=== PATIENT | female | born 1955 | race Caucasian/White ===

== ENCOUNTER 2024-08-19 20:16 | Inpatient (IN) | payer OTHER, SELFPAY ==
[2024-08-19] VITALS (10 sets, daily range): BP systolic 140–195; BP diastolic 76–130; BMI 20.5; BMI 19.8
--- NOTE | 2024-08-19 14:21 | ED.GENMED ---
ED Provider Triage
<Sara Bryan PATIENT ACCESS COORDINATOR - Last Filed: 08/19/24 14:30>
-
Patient seen by provider in Triage?: Seen in Triage
Attestation: A medical screening examination has been initiated by a qualified medical provider. Based on the assessment performed at this time, it has been determined that an emergent medical condition may exist and the patient has been informed
that further medical evaluation and possible additional diagnostic testing may be needed.
HPI: 68 yo female with COPD presents for worsening SOB for past 10 days. Pt denies cough but at her side states she's been coughing. denies fever.
Pulse ox 74% RA on arrival, placed on O2 NC 4 L/min, pulse ox now 96%.
Finished Prednisone and antibiotic June. Started on anxiety medications 3 weeks ago and 'I've had all kinds of side effects between the prednisone.'
Switched from Lexapro to Zoloft 5 days ago due to 'shaking, trembling.'
GENERAL: Alert , in no apparent distress
EYE: No visual abnormalities.
NECK: Trachea midline
ENT: No visible abnormalities.
CARDIAC: HR 136
LUNGS: No acute respiratory distress.
NEUROLOGICAL: Alert and oriented
SKIN: Skin intact. No visible changes.
MUSCULOSKELETAL: Moving extremities normally
PSYCH: Normal and appropriate interaction.
This is a medical evaluation conducted in person to initiate diagnostic evaluation and provide initial therapeutics. Please see further documentation by the treating clinician.
History of Present Illness
<Sara Bryan PATIENT ACCESS COORDINATOR - Last Filed: 08/19/24 14:30>
General
Chief Complaint: Breathing Problem
Time Seen by Provider: 08/19/24 14:36
<Francisco Bartlett MD - Last Filed: 08/19/24 20:20>
General
Source: patient
Exam Limitations: none
Nursing documentation reviewed up to this point in time: agreed with
History of Present Illness
History of Present Illness:
68-year-old female with a past medical history of COPD, hypertension, anxiety who presents to the emergency department accompanied by her for evaluation of shortness of breath. Patient reports that she has had 'flareup' of her COPD really
since May but symptoms particularly severe over the past week. 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
weeks ago (early July). She was also prescribed a short course of antibiotics. She is already on Trelegy, rescue albuterol. She says that despite steroids, antibiotics her symptoms never really went away, only improved slightly. She says over
the past week symptoms once again worsening, today having trouble speaking in full sentences due to severe shortness of breath and sent to the emergency room. She has not had any fever. She says she has chronic rhinorrhea related to allergies but
no recent sore throat or other URI symptoms. She denies any chest pain. She denies any GI issues. She denies any other complaints. Only other recent pertinent history is that she has been seen by psychiatrist as apparently there was some
suspicion that her shortness of breath could have a component of anxiety�she was apparently started on SSRI and Klonopin as needed and she has not noticed any improvement.
Review of Systems
<Francisco Bartlett MD - Last Filed: 08/19/24 20:20>
Review of Systems
All Other Systems: ROS reviewed and negative except as documented in HPI and ROS
Constitutional: Denies fever or chills
EENT: Reports runny nose; Denies sore throat
Respiratory: Reports cough and trouble breathing
Cardiac: Denies chest pain or palpitations
ABD/GI: Denies abdominal pain, nausea or vomiting
: Denies flank pain
Musculoskeletal: Denies edema, neck pain or back pain
Neurological: Denies dizzy or headache
Phy Exam
<Francisco Bartlett MD - Last Filed: 08/19/24 20:20>
Physical Exam
Physical Exam:
General: Awake, alert, oriented x3; sitting upright in the bed, mild respiratory distress, speaking in short sentences
Head: Normocephalic, atraumatic
Eyes: Conjunctiva normal, sclera anicteric
Throat: Airway intact, handling secretions
Neck: Trachea midline, no JVD
Lungs: Patient sitting upright, speaking in short sentences, tachypnea with respiratory rate of 26, hypoxia to 85% requiring 4 L nasal cannula, diminished air movement with prolonged expiratory phase, diffuse wheezing
Heart: Tachycardia with regular rhythm, no murmurs, gallops, or rubs appreciated within limitations of significant tachycardia
Abd: Soft, non distended, nontender
Neuro: No gross deficits
Skin: no rash
Extremities: No edema in extremities, equal pulses in all extremities
Scores
<Francisco Bartlett MD - Last Filed: 08/19/24 20:20>
Heart Failure Risk
Heart Failure Risk Score: Not Applicable
Heart Score for Chest Pain Patients
STEMI patient?: Not applicable
Withdrawal Assessment of Alcohol
Withdrawal Assessment Completed?: Not applicable
Course
<Sara Bryan NP - Last Filed: 08/19/24 14:30>
Orders/Labs/Results
Orders:
Orders
08/19/24 Breakfast
Regular
At Your Request: Full Participation
08/19/24 14:30
Electrocardiogram (*1) Urgent
Reason for Study: Shortness of Breath
Other Reason for Exam: Tachycardia
EKG- Treatment ONCE
08/19/24 14:46
Ipratropium/Albuterol Sulfate [Duoneb] 3 ml .ROUTE .STK-MED ONE
MethylPREDNISolone PF [Solu-Medrol Pf] 40 mg .ROUTE .STK-MED ONE
08/19/24 14:50
CMP [Comprehensive Metabolic Panel] Urgent
Complete Blood Count/With Diff Urgent
NT-proBNP Urgent
Troponin I Urgent
08/19/24 15:00
COVID-19 Antigen Urgent
Source: Nasal Swab
D-Dimer Urgent
PTT Urgent
Prothrombin Time Urgent
Influenza A+B Rapid Molecular Urgent
[place] Source: Nasal Swab
Specimen Description:
08/19/24 15:07
MethylPREDNISolone PF [Solu-Medrol Pf] 125 mg .ROUTE .STK-MED ONE
MethylPREDNISolone PF [Solu-Medrol Pf] 125 mg IV NOW STA
08/19/24 15:12
Ipratropium/Albuterol Sulfate [Duoneb] 3 ml INH R NOW ONE
08/19/24 15:21
Ipratropium/Albuterol Sulfate [Duoneb] 3 ml INH R NOW STA
08/19/24 15:45
CT Chest Pe Study Urgent
Comment:
Reason For Exam: sob, hypoxia, +dimer
08/19/24 15:47
CR Chest - 2 Views Urgent
Comment:
Reason For Exam: sob
08/19/24 16:46
Ipratropium/Albuterol Sulfate [Duoneb] 3 ml INH R NOW STA
08/19/24 16:50
Venous Blood Gas Urgent
%Oxygen/Room Air: 85
08/19/24 19:13
Procalcitonin Urgent
PCT Algorithmm Indication: Respiratory
08/19/24 19:40
Admit/Transfer Patient As Directed
Co-Sign Provider:
Level of Care: Inpatient admission
Assign to:: Telemetry
Physician / Group: Ignacio
Diagnosis: RUL Mass, COPD
Reason for Telemetry: Arrhythmia
Date to Stop Telemetry: 08/22/24
Time to Stop Telemetry: 11:00
Reason for Hospitalization: RUL Mass, COPD
Expected length of stay greater than two midnights?: Yes
ELOS- Estimated Length of Stay in days: 3
I certify the patient meets the requirements for IP care: Yes
PRN Pain Medication Management As Directed
May give lesser potent ordered pain med per pt: Yes
preference::
Protocol:: Medication orders for pain may be administered in a
manner that supports deferring to patient preference
when the pt is:
- Requesting an ordered lesser potent pain medication.
Least to most potent pain medications are defined
as: acetaminophen < NSAID < tramadol < opioids
(morphine, oxycodone, hydromorphone).
- Requesting a lesser dose of the same medication IF
ORDERED.
- Requesting a less intrusive route of administration
if both routes are prescribed by the provider (PO <
IV).
08/19/24 19:41
Code Status As Directed
Resuscitation Status: Full Code
08/19/24 19:45
Clonazepam [Klonopin] 0.5 mg PO NOW STA
08/22/24 11:00
DC Protocol for Telemetry ONCE
Abnormal Lab Results
08/19/24 08/19/24 08/19/24
14:50 15:00 16:50
WBC 13.0 H 10^3/uL
(4.8-10.8)
Plt Count 504 H 10^3/uL
(130-400)
Abs Immat Gran (auto) 0.1 H 10^3/uL
(0-0.05)
Absolute Neuts (auto) 10.8 H 10^3/uL
(1.4-6.5)
Absolute Monos (auto) 0.9 H 10^3/uL
(0.1-0.6)
Neutrophils % 83.1 H %
(42.2-75.2)
Lymphocytes % 8.9 L %
(20.5-51.1)
D-Dimer 0.89 H ug/mlFEU
(0.00-0.50)
VBG pCO2 34 L mmHg
(35-48)
VBG pO2 210 H mmHg
(30-50)
VBG HCO3 21.1 L mmol/L
(22-27)
BUN 19 H mg/dl
(7-17)
Glucose 203 H mg/dl
(70-99)
Alkaline Phosphatase 127 H U/L
(38-126)
08/19/24 14:50
08/19/24 14:50
Vital Signs
Initial and Last Documented VS:
Initial Vital Signs
Temp Pulse Resp BP Pulse Ox
36.8 C 135 26 195/130 95
08/19/24 14:21 08/19/24 14:21 08/19/24 14:21 08/19/24 14:21 08/19/24 14:21
Last Documented Vital Signs
Temp Pulse Resp BP Pulse Ox
36.8 C 114 22 156/98 96
08/19/24 14:21 08/19/24 20:15 08/19/24 20:15 08/19/24 20:00 08/19/24 20:15
<Francisco Bartlett MD - Last Filed: 08/19/24 20:20>
Orders/Labs/Results
Orders:
Orders
08/19/24 Breakfast
Regular
At Your Request: Full Participation
08/19/24 14:30
Electrocardiogram (*1) Urgent
Reason for Study: Shortness of Breath
Other Reason for Exam: Tachycardia
EKG- Treatment ONCE
08/19/24 14:46
Ipratropium/Albuterol Sulfate [Duoneb] 3 ml .ROUTE .STK-MED ONE
MethylPREDNISolone PF [Solu-Medrol Pf] 40 mg .ROUTE .STK-MED ONE
08/19/24 14:50
CMP [Comprehensive Metabolic Panel] Urgent
Complete Blood Count/With Diff Urgent
NT-proBNP Urgent
Troponin I Urgent
08/19/24 15:00
COVID-19 Antigen Urgent
Source: Nasal Swab
D-Dimer Urgent
PTT Urgent
Prothrombin Time Urgent
Influenza A+B Rapid Molecular Urgent
[place] Source: Nasal Swab
Specimen Description:
08/19/24 15:07
MethylPREDNISolone PF [Solu-Medrol Pf] 125 mg .ROUTE .STK-MED ONE
MethylPREDNISolone PF [Solu-Medrol Pf] 125 mg IV NOW STA
08/19/24 15:12
Ipratropium/Albuterol Sulfate [Duoneb] 3 ml INH R NOW ONE
08/19/24 15:21
Ipratropium/Albuterol Sulfate [Duoneb] 3 ml INH R NOW STA
08/19/24 15:45
CT Chest Pe Study Urgent
Comment:
Reason For Exam: sob, hypoxia, +dimer
08/19/24 15:47
CR Chest - 2 Views Urgent
Comment:
Reason For Exam: sob
08/19/24 16:46
Ipratropium/Albuterol Sulfate [Duoneb] 3 ml INH R NOW STA
08/19/24 16:50
Venous Blood Gas Urgent
%Oxygen/Room Air: 85
08/19/24 19:13
Procalcitonin Urgent
PCT Algorithmm Indication: Respiratory
08/19/24 19:40
Admit/Transfer Patient As Directed
Co-Sign Provider:
Level of Care: Inpatient admission
Assign to:: Telemetry
Physician / Group: Ignacio
Diagnosis: RUL Mass, COPD
Reason for Telemetry: Arrhythmia
Date to Stop Telemetry: 08/22/24
Time to Stop Telemetry: 11:00
Reason for Hospitalization: RUL Mass, COPD
Expected length of stay greater than two midnights?: Yes
ELOS- Estimated Length of Stay in days: 3
I certify the patient meets the requirements for IP care: Yes
PRN Pain Medication Management As Directed
May give lesser potent ordered pain med per pt: Yes
preference::
Protocol:: Medication orders for pain may be administered in a
manner that supports deferring to patient preference
when the pt is:
- Requesting an ordered lesser potent pain medication.
Least to most potent pain medications are defined
as: acetaminophen < NSAID < tramadol < opioids
(morphine, oxycodone, hydromorphone).
- Requesting a lesser dose of the same medication IF
ORDERED.
- Requesting a less intrusive route of administration
if both routes are prescribed by the provider (PO <
IV).
08/19/24 19:41
Code Status As Directed
Resuscitation Status: Full Code
08/19/24 19:45
Clonazepam [Klonopin] 0.5 mg PO NOW STA
08/22/24 11:00
DC Protocol for Telemetry ONCE
Abnormal Lab Results
08/19/24 08/19/24 08/19/24
14:50 15:00 16:50
WBC 13.0 H 10^3/uL
(4.8-10.8)
Plt Count 504 H 10^3/uL
(130-400)
Abs Immat Gran (auto) 0.1 H 10^3/uL
(0-0.05)
Absolute Neuts (auto) 10.8 H 10^3/uL
(1.4-6.5)
Absolute Monos (auto) 0.9 H 10^3/uL
(0.1-0.6)
Neutrophils % 83.1 H %
(42.2-75.2)
Lymphocytes % 8.9 L %
(20.5-51.1)
D-Dimer 0.89 H ug/mlFEU
(0.00-0.50)
VBG pCO2 34 L mmHg
(35-48)
VBG pO2 210 H mmHg
(30-50)
VBG HCO3 21.1 L mmol/L
(22-27)
BUN 19 H mg/dl
(7-17)
Glucose 203 H mg/dl
(70-99)
Alkaline Phosphatase 127 H U/L
(38-126)
08/19/24 14:50
08/19/24 14:50
Vital Signs
Initial and Last Documented VS:
Initial Vital Signs
Temp Pulse Resp BP Pulse Ox
36.8 C 135 26 195/130 95
08/19/24 14:21 08/19/24 14:21 08/19/24 14:21 08/19/24 14:21 08/19/24 14:21
Last Documented Vital Signs
Temp Pulse Resp BP Pulse Ox
36.8 C 114 22 156/98 96
08/19/24 14:21 08/19/24 20:15 08/19/24 20:15 08/19/24 20:00 08/19/24 20:15
<Francisco Bartlett MD - Last Filed: 08/19/24 20:20>
MDM/Problems Addressed
Differential Diagnosis Includes:
COPD exacerbation, pneumonia, pneumothorax, PE, CHF
MDM/Problems Addressed:
68-year-old female presents to the ER for evaluation of shortness of breath�has had increased shortness of breath and cough since May, was initially treated with steroids and antibiotics with only slight improvement but not true resolution of her
symptoms. Over the past week symptoms worsening once again to the point of mild distress today. Markedly hypertensive, tachycardic, tachypneic, hypoxic on arrival but afebrile. Exam as above. EKG shows sinus tachycardia. Will place an IV send
labs including a CBC and a CMP, swab for COVID and flu. Certainly her presentation today seems consistent with COPD exacerbation but with her history of prolonged shortness of breath that did not resolve with steroids and antibiotics over the past
few months I do think evaluation for PE with D-dimer, troponin/BNP, coags is reasonable. Check chest x-ray. Will treat with DuoNeb and IV steroid. Will monitor closely reassess after the above.
Labs reviewed: CBC shows leukocytosis to 13 of unclear clinical significance in the setting of recent steroids. CMP hyperglycemia no other clinically significant abnormalities. BNP and troponin unremarkable. COVID and flu negative. D-dimer was
positive. Chest x-ray question right upper lobe pneumonia versus mass versus lobar infarct�with positive D-dimer and abnormal chest x-ray follow-up with CTA chest. Clinical reassessment wheezing greatly improved after DuoNeb treatments, wean down
oxygen.
CT of the chest shows no PE but near collapse of the right upper lobe secondary to what appears to be a right upper lobe mass suspicious for malignancy. Numerous scattered nodules within the left lower lobe which could be metastatic also enlarged
subcarinal lymph node; differential would also include cavitary pneumonia. Will send a procalcitonin but concern for malignancy. Suspect her acute symptoms are related to COPD exacerbation. I spoke to patient and family at length about findings
on imaging and implications. Will admit to the hospital for further treatment of COPD exacerbation and further evaluation of right upper lung findings on CT. Case discussed with hospitalist.
Chronic conditions affecting care:
COPD
Acute Exacerbation and/or Progression of Chronic Illness:
Acutely hypertensive likely related to respiratory symptoms�stabilize respiratory status and reassess.
Acute Exacerbation and/or Progression of Chronic Illness: HTN
<Francisco Bartlett MD - Last Filed: 08/19/24 20:20>
*Radiology
Radiology exam reviewed: radiology read reviewed
*Pulse Oximetry
Patient hypoxic: yes
*EKG
Interpreted by ED Provider?: Yes
Heart Rate: 131
Rate: tachycardiac
Rhythm: sinus and sinus tachycardia
[place]: normal axis
Interval: normal interval
QRS Pattern: normal QRS
Ischemia: non-specific ST changes
*Critical Care Note
Total Time (30-74mins, 75-104mins- exclusive of procedures): 34
comment:
Critical care statement: A total of 34 minutes of critical care time was provided for this patient. This includes management of unstable vital signs, evaluation of the patient at bedside, frequent reassessment, discussion with
consultants/hospitalist, and review of pertinent medical records. This time was separate from time utilized to perform any aforementioned documented procedures
Data Reviewed
Source: patient and spouse
<Francisco Bartlett MD - Last Filed: 08/19/24 20:20>
Patient Management
Discussion with other providers: Hospitalist (Case discussed with hospitalist)
Escalation/DeEscalation of care consider admission/obs:
Admission indicated
ED Attending Note
<Sara Bryan NP - Last Filed: 08/19/24 14:30>
-
Portions of this chart may have been created with voice recognition software.� Occasional wrong word or��sound alike� substitutions may have occurred due to the inherent limitations of voice recognition software.
Discharge Plan
Departure
Patient Disposition: Admit
Date of Disposition: 08/19/24
Time of Disposition: 19:09
Admit to doctor: Ignacio
Presentation/result/management discussed w/ accepting MD/DO: Hospitalist
Discharge Problem:
COPD with exacerbation, Mass of right lung
Interventions
Interventions:
*Risk Screen - Suicide Last Done: 08/19/24 14:21
*General Assessment Last Done: 08/19/24 15:15
*Neglect/Abuse Screening Last Done: 08/19/24 14:21
ED- Fall Risk Assessment Last Done: 08/19/24 15:15
*ED COVID-19 Vaccine History Last Done: 08/19/24 14:28
ED- Cardiac Assessment Last Done: 08/19/24 15:16
ED- Pulmonary Assessment Last Done: 08/19/24 15:16
[2024-08-19] MEDS: SOLU-MEDROL PF 125 MG IV (15:08)
[2024-08-19 15:10] LABS: % Basophils 0.3 % (0-2); % Eosinophils 0.4 % (0-6); % Immature Granulocytes 0.4 % (0-0.5); % Lymphocytes 8.9 % (20.5-51.1); % Monocytes 6.9 % (1.7-9.3); % Neutrophils 83.1 % (42.2-75.2); Absolute Eosinophils 0.1 10^3/uL (0-0.7); Absolute Immature Granulocytes 0.1 10^3/uL (0-0.05); Absolute Lymphocytes 1.2 10^3/uL (1.2-3.4); Absolute Monocytes 0.9 10^3/uL (0.1-0.6); Absolute Neutrophils 10.8 10^3/uL (1.4-6.5); Hematocrit 40.8 % (37.0-47.0); Hemoglobin 13.6 g/dL (12.0-16.0); Mean Corp Hgb Conc. 33.3 g/dL (33.0-37.0); Mean Corpuscular Hgb 28.2 pg (27.0-31.0); Mean Corpuscular Volume 84.5 fL (81.0-99.0); Mean Platelet Volume 9.7 fL (7.4-10.4); Nucleated Red Blood Cells % 0 %; Platelet Count 504 10^3/uL (130-400); Red Blood Cell Count 4.83 10^6/uL (4.20-5.40); Red Cell Dist. Width 13.7 % (11.5-14.5)
[2024-08-19] MEDS: DUONEB 3 ML INH ×4 (15:12→21:20)
[2024-08-19 15:25] LABS: INR 1.03; PT 13.3 Sec (11.4-14.6)
[2024-08-19 15:26] LABS: APTT 33.5 Sec (23.4-35.0)
[2024-08-19 15:28] LABS: ALT (SGPT) 20 U/L (0-35); AST (SGOT) 22 U/L (14-36); Albumin 4.9 g/dl (3.5-5.0); Alkaline Phosphatase 127 U/L (38-126); Blood Urea Nitrogen 19 mg/dl (7-17); Carbon Dioxide 25 mmol/L (22-30); Chloride 99 mmol/L (98-107); Estimated Creatinine Clearance 64 ml/min; Glucose 203 mg/dl (70-99); Potassium 3.8 mmol/L (3.5-5.1); Sodium 141 mmol/L (135-145); Total Bilirubin 0.4 mg/dl (0.2-1.3); eGFR > 60.00
[2024-08-19 15:29] LABS: D-Dimer 0.89 ug/mlFEU (0.00-0.50)
[2024-08-19 15:39] LABS: NT-proBNP 200 pg/ml; Troponin I < 0.012 ng/ml
[2024-08-19 15:39] LABS: COVID-19 Antigen Negative (Negative)
[2024-08-19 17:11] LABS: Venous Blood Gas B.E. -3.1 mmol/L (-4 to +4); Venous Blood Gas HCO3 21.1 mmol/L (22-27); Venous Blood Gas O2 Sat % 99.8 %; Venous Blood Gas pCO2 34 mmHg (35-48); Venous Blood Gas pO2 210 mmHg (30-50)
--- NOTE | 2024-08-19 19:46 | HPS.HSE ---
Family Physician
-
Family Physician: * NONE
Chief Complaint
-
SOB
History of Present Illness
Patient is a 68y F with PMH significant for COPD and anxiety who presents to ED complaining of SOB. Patient states that her symptoms initially started in May. She had cough, fevers / chills, wheezing and SOB. She was seen by her
Paid Search Specialist at that time (Dr. San @ [facility]) and prescribed two course of steroids and antibiotics. Patient states that her fevers resolved; however, her dyspnea did not significantly improve and has only persisted since that time. Patient
presented to ED today for further evaluation. She was markedly dyspneic on arrival and has improved significantly with O2, nebs, etc.
Medical History
Past Medical History
Past Medical History: Reports Other
Additional Past Medical History:
COPD
Anxiety
Past Surgical History: Reports None
Social History
Tobacco: Former Smoker (Quit smoking in 2008. Approx 40 pack years total use.)
Alcohol: Occasional
Drug: None
Personal:
Living: With Family
Family History
Family History: Other (Brother: Liver Cancer, Hypertension Mother: Parkinson's)
Allergies / Home Medications
Allergies reflects when Allergies were last updated in [facility].
Home Medications with original date entered in [facility]
Allergy/Medication List:
Allergies
Allergy/AdvReac Type Severity Reaction Status Date / Time
No Known Allergies Allergy Verified 08/19/24 14:27
Home Medications
acetaminophen 325 mg tablet (Tylenol) 650 mg PO Q6HPRN PRN mild pain 08/19/24
albuterol sulfate 90 mcg/actuation aerosol inhaler 2 puff inhalation R Q6HPRN PRN sob 08/19/24
clonazepam 0.5 mg disintegrating tablet 0.5 mg PO DAILY 08/19/24
fluticasone fur. 100 mcg-umeclid 62.5 mcg-vilant 25 mcg inhalat.powder (Trelegy Ellipta) 1 inh inhalation R DAILY 08/19/24
sertraline 25 mg tablet 25 mg PO DAILY 08/19/24
Review of Systems
-
History Source: Patient
A 12 point ROS was completed and negative except as noted: Yes
Constitutional: Reports Fatigue; Denies Fever or Chills
EENT: Denies Sore Throat
Respiratory: Reports Cough and Trouble Breathing; Denies Hemoptysis
Cardiac: Reports Palpitations; Denies Chest Pain, Diaphoresis or Syncope
Abdomen/GI: Denies Abdominal Pain, Nausea, Vomiting or Diarrhea
: Denies Dysuria, Frequency or Flank Pain
Musculoskeletal: Denies Edema
Neurological: Reports Weakness and Numbness; Denies Dizzy or Headache
Psych: Reports Anxiety; Denies Depression
Physical Exam
Vital Signs
Vital Signs
Temp Pulse Resp BP Pulse Ox
98.3 F 121 24 140/90 95
08/19/24 14:21 08/19/24 19:30 08/19/24 19:30 08/19/24 19:00 08/19/24 19:30
Physical Exam
General: Other (68y F in mild-moderate distress due to dyspnea / anxiety.)
HEENT: Moist mucous membranes and PERRLA
Respiratory: Other (Decreased BS throughout. No wheezing.)
Cardiac: S1/S2 and Tachycardia; No Murmur
GI: Soft, Non Tender, Non Distended and Normal Bowel Sounds
Musculoskeletal: No Clubbing, No Cyanosis and No Edema
Neuro: AO x 3 and Other (Mildly tremulous - no focal findings / deficits.)
Psych: Anxious
Laboratory Results
-
08/19/24 14:50
08/19/24 14:50
Laboratory Results
PT 13.3 Sec (11.4-14.6) 08/19/24 15:00
INR 1.03 08/19/24 15:00
APTT 33.5 Sec (23.4-35.0) 08/19/24 15:00
Total Bilirubin 0.4 mg/dl (0.2-1.3) 08/19/24 14:50
AST 22 U/L (14-36) 08/19/24 14:50
ALT 20 U/L (0-35) 08/19/24 14:50
Alkaline Phosphatase 127 U/L (38-126) H 08/19/24 14:50
Troponin I < 0.012 ng/ml 08/19/24 14:50
Impression/Plan
-
A/P: Patient is a 68y F with PMH significant for COPD and anxiety who presents to ED complaining of SOB x several weeks.
RUL Mass
RUL Collapse secondary to the above
- Admit for further evaluation and treatment.
- Suspect primary pulmonary malignancy.
- Scattered nodules suspicious for metastases.
- Pulmonary evaluation.
- Tissue biopsy by bronchoscopy v. IR.
- Oncology evaluation after biopsy results.
- With symptoms of L hand numbness, weakness, etc - will check MR brain to rule out metastatic lesions.
COPD with Acute Exacerbation
- Wheezing and increased dyspnea appreciated on initial exam.
- Now improved after nebs.
- Continue IV steroids for now, nebs ATC and PRN.
- O2 support as needed.
- Pulm evaluation as noted above.
Generalized Anxiety
- Patient complains of increased tremulousness on Lexapro and Zoloft.
- Will hold further Zoloft for now.
- Continue clonazepam and increase frequency for improved control of anxiety.
Tachycardia
- Likely due to combination of dyspnea, anxiety and albuterol.
- Monitor on telemetry for now.
- Follow for improvement with improvement in dyspnea, anxiolysis, etc.
DVT Prophylaxis: SCDs
Code Status: Full
[2024-08-19] MEDS: KLONOPIN 0.5 MG PO (19:56)
[2024-08-19 19:57] LABS: Procalcitonin < 0.05 ng/ml (0.0-0.25)
[2024-08-19] MEDS: SOLU-MEDROL PF 40 MG IV (23:37)
--- NOTE | 2024-08-20 00:24 | PTCARENOTE ---
Patient arrived to unit via stretcher from ED. Pt. able to stand and pivot from stretcher to bed in room 317-2 on . Patient AAOx3 and able to make needs known. O2 4L via NC. No c/o pain. Oriented to unit. Call gabriel within reach. Plan of care
ongoing.
[2024-08-20 03:22] VITALS: BP 132/67
[2024-08-20 06:59] LABS: Hematocrit 38.2 % (37.0-47.0); Hemoglobin 12.9 g/dL (12.0-16.0); Mean Corp Hgb Conc. 33.8 g/dL (33.0-37.0); Mean Corpuscular Hgb 29.1 pg (27.0-31.0); Mean Platelet Volume 9.8 fL (7.4-10.4); Platelet Count 438 10^3/uL (130-400); Red Blood Cell Count 4.44 10^6/uL (4.20-5.40); Red Cell Dist. Width 13.7 % (11.5-14.5)
[2024-08-20] MEDS: DUONEB 3 ML INH ×4 (07:21→19:11)
[2024-08-20 07:22] LABS: Blood Urea Nitrogen 14 mg/dl (7-17); Carbon Dioxide 28 mmol/L (22-30); Chloride 100 mmol/L (98-107); Estimated Creatinine Clearance 64 ml/min; Glucose 131 mg/dl (70-99); Potassium 4.1 mmol/L (3.5-5.1); Sodium 142 mmol/L (135-145); eGFR > 60.00
[2024-08-20 07:36] VITALS: BP 162/101
[2024-08-20] MEDS: SOLU-MEDROL PF 40 MG IV ×3 (07:50→23:24)
[2024-08-20] MEDS: KLONOPIN 0.5 MG PO ×2 (07:50→21:43)
[2024-08-20 08:09] LABS: Hepatitis C Antibody Negative (Negative)
--- NOTE | 2024-08-20 08:52 | W.PN.HOSP.TC ---
Today's Communication/Plan
-
Consult oncology
Consult radiation oncology
Plan for bronchoscopy with biopsy 08/23
Assessment / Plan
Assessment / Plan
HPI: 68y F with PMH significant for COPD and anxiety who presents to ED complaining of SOB. Patient states that her symptoms initially started in May. She had cough, fevers / chills, wheezing and SOB. She was seen by her Surgical Oncologist at
that time (Dr. San @ [facility]) and prescribed two course of steroids and antibiotics. Patient states that her fevers resolved; however, her dyspnea did not significantly improve and has only persisted since that time. Patient presented to
ED today for further evaluation.
#Right upper lobe mass suspicious for metastatic lung cancer
#Right parietal lobe lesion, likely cerebral metastases
Discussed with pulmonology, who plans for bronchoscopy with biopsy on 08/23
Discussed with neurosurgery, who states that her parietal lobe lesion is from metastases, not abscess
Consult oncology and radiation oncology
#Acute on chronic COPD exacerbation
Continue IV steroids, bronchodilators
#Acute hypoxic respiratory insufficiency
Currently requiring 4 L of oxygen, wean as tolerated
She does not wear oxygen at home
#Generalized anxiety
Patient reports increased tremulousness on Lexapro and Zoloft, she wishes to discontinue both
Start Ativan as needed, continue Klonopin at night
#Sinus tachycardia
Due to albuterol and anxiety
Monitor for now
DVT prophylaxis�subcu Lovenox
Full code
Updated family at bedside 08/20
Total time spent to see the patient on the floor, examine the patient, review data and lab results, discuss treatment plan with patient, nursing staff around 53 minutes.
Physical Exam
General: No acute distress
HEENT: Normocephalic, Atraumatic, EOMI, MMM
Respiratory: Severely diminished lung sounds in all lung morgan
Cardiac: Normal S1/S2, Regular Rate and Rhythm
GI: Soft, Nontender, Nondistended, Normal Bowel Sounds
Extremities: No Clubbing, Cyanosis, or Edema
Neuro: Moderate tremors noted, left hand weakness noted
Psych: Calm, Cooperative
Derm: No Visible lesions
Anticipated Discharge: > 48 hours
Subjective/Interval History
-
Date of Service: August 20, 2024
Patient reports her breathing is improved. She has a dry of cough. She also reports left hand weakness. No fever, no vomiting.
Objective Data
-
Labs:
Laboratory Results
08/20/24
06:26
WBC 10.0
Hgb 12.9
Hct 38.2
Plt Count 438 H
Sodium 142
Potassium 4.1
Chloride 100
Carbon Dioxide 28
BUN 14
Creatinine 0.5 L
Glucose 131 H
Calcium 10.0
Vital Signs:
Vital Signs
Temp Pulse Resp BP Pulse Ox
97.3 F 112 20 162/101 97
08/20/24 07:36 08/20/24 07:36 08/20/24 07:36 08/20/24 07:36 08/20/24 07:36
[2024-08-20] MEDS: ZESTRIL 20 MG PO (09:25)
[2024-08-20 11:07] VITALS: BP 163/90
[2024-08-20] MEDS: DUONEB INH (11:32)
--- NOTE | 2024-08-20 12:34 | CON.INTV ---
Consultation
Consultation Request
Date/Time Consultation Requested: 08/20/2024
Date/Time Consultation Performed: 08/20/2024
Reason for Consultation: COPD, hypoxia, abnormal imaging
Medical History
-
History of Present Illness:
History obtained from the hospital records and from the patient, and multiple family members at bedside. Patient is a 68-year-old female with history of COPD. She presents to [facility] with shortness of breath. Per records and per
patient, patient has been short of breath for the past 2 months. She does see pulmonary at [facility] and was treated with steroids and antibiotics on 06/27 with repeat course middle of June. Despite this, symptoms progressed. She
describes chest tightness which is improved with nebulized therapy, now resolved since hospital stay. She also admits to left hand weakness, dropping things more easily since 08/14. She also describes a fall when she tripped over something over
the last few weeks, denied head trauma. She is lost 10 pounds over the past few months. Upon arrival to [facility], she was dyspneic, afebrile, pulse 121, breathing at 24, blood pressure 140/90, 95%. White count was noted to be elevated
at 13. Chest x-ray and CT chest suggested right upper lobe mass with right upper lobe airway collapse. Patient also with significant wheezing on exam. We are asked to comment on the pulmonary process of note, patient does not see primary
physician regularly, has not had colonoscopy, mammograms, recent chest x-ray. According to , when diagnosed with COPD in 2011 had imaging
Patient denies any travel, TB contacts. She had some fevers and of May but none since
.
PMH: Diagnosed with COPD 2011, does not routinely follow primary physician
Past Medical History
Past Medical History: None (See above)
Past Surgical History: None (See above)
Social History
Tobacco: Former Smoker ([id number], quit 2007)
Alcohol: Occasional
Drug: None
Personal:
Living: With Family
Employment: Employed (Works with medical billing)
Family History
Family History: Other (2 children healthy, 1 brother recently diagnosed with liver cancer. Family history negative for lung disease. Mother did have emphysema, had chronic respiratory failure postsurgical in the past unable to be weaned from the
ventilator)
Allergies / Home Medications
Allergies
Allergy/AdvReac Type Severity Reaction Status Date / Time
No Known Allergies Allergy Verified 08/19/24 14:27
Home Medications
�Medication �Instructions �Recorded �Confirmed �Last Taken �Type
acetaminophen 325 mg tablet 650 mg PO Q6HPRN PRN mild pain 08/19/24 08/19/24 Unknown History
(Tylenol)
albuterol sulfate 90 mcg/actuation 2 puff inhalation R Q6HPRN PRN sob 08/19/24 08/19/24 Unknown History
aerosol inhaler
clonazepam 0.5 mg disintegrating 0.5 mg PO DAILY Mental 08/19/24 08/19/24 Unknown History
tablet Health/Anxiety
fluticasone fur. 100 mcg-umeclid 1 inh inhalation R DAILY 08/19/24 08/19/24 Unknown History
62.5 mcg-vilant 25 mcg Lung/Breathing Issues
inhalat.powder (Trelegy Ellipta)
sertraline 25 mg tablet 25 mg PO DAILY Depression 08/19/24 08/19/24 Unknown History
Review of Systems
-
All other systems: Negative unless noted
Vitals / Labs / Diagnostic Testing
Vital Signs
Temp Pulse Resp BP Pulse Ox
99.4 F 110 20 163/90 98
08/20/24 11:07 08/20/24 11:07 08/20/24 11:07 08/20/24 11:07 08/20/24 11:07
Lab Data
08/20/24 06:26
08/20/24 06:26
Laboratory Results
08/19/24
15:00
PT 13.3
INR 1.03
APTT 33.5
Microbiology
08/19/24 15:00 Nasal Swab Influenza Types A & B (KATELYN) - Final
Negative for Influenza A & B, NAAT
Negative results must be combined with clinical observations
and patient history.
Nucleic Acid Amplification test (NAAT)performed on the
[employer] platform.
Diagnostic Testing:
Physical Exam
-
HEENT: Normocephalic and Anicteric
Cardiovascular: S1/S2, Regular Rhythm, Murmur (n), Rub (n), Peripheral Edema (n) and Other (Positive clubbing)
Respiratory: Wheeze (n), Rales (n), Rhonchi (n), Non-Labored Respirations and Other (Decreased breath sounds throughout, no wheeze on forced expiration, no stridor)
GI: Soft, Non Distended and Non Tender
Neurology: Awake, Alert, Oriented and No Motor Deficits (Able to sit up without assistance)
Skin: Good Color
General: Comfortable
Assessment
-
68-year-old female with history of COPD, 80+ pack-year history of smoking, with progressive shortness of breath x 2 months treated with 2 courses of antibiotics/steroids. She presents with COPD exacerbation with abnormal imaging. We are asked to
comment on pulmonary process 08/20/2024
Acute COPD exacerbation
Treated with steroids/antibiotics x 2 over the past 6 weeks
5.5 cm right upper lobe mass encompassing a right upper lobe airway
Right lung volume loss
Subcarinal adenopathy
Scattered bilateral nodules
Ring-enhancing right frontal lobe mass 3.3 cm with surrounding edema, mild left shift
10 pound weight loss
Left hand weakness
Abnormal EKG
P pulmonology
Conditions present prior to admission
Emphysema/COPD
[id number] history of smoking quit 2007
Family history of emphysema (mother)
Plan/recommendations
At this time, patient with significant respiratory symptoms, progressive x 2 months
Current testing worrisome for primary lung malignancy with brain metastases
EKG concerning for chronic lung disease
Emphysema noted per CT chest
Lung mass with almost complete obstruction/encasement of right upper lobe airway
Moving forward
Continue with treatment for COPD exacerbation. Patient feels nebulized therapy helps with chest tightness
Continue with IV steroids, DuoNebs 4 times a day
Abnormal EKG noted
Check echocardiogram
Check bedside spirometry
She will require tissue biopsy
Strong suspicion for primary lung cancer with metastases. Less likely infection
remains off abx
Would consider oncology evaluation, and radiation/oncology evaluation as indicated
Discussed possible need for bronchoscopy which can be done 08/23 for tissue biopsy
Reviewed at length with patient and multiple family members
Reviewed that if this is metastatic lung cancer, initiation of treatment is important, especially given advances that have been made and treatment options
All questions answered
Reviewed briefly with primary service
Will follow
[2024-08-20 15:29] VITALS: BP 115/65
--- NOTE | 2024-08-20 16:03 | CON.ONC ---
Impression
Impression
suspected right lung cancer, with solitary [employer] met
dyspnea
left hand clumsiness
Plan
Plan
Clinical picture most c/w stage IV lung cancer
Rad onc consult pending; to discuss w/ neurosurgery whether to consider neurosurgical or radiation approach for treatment
Continue steroids, await input from rad onc re: possible switch to dexamethasone. GI ppx.
If no plans for neurosurg intervention, would plan for bronch biopsy later this week to obtain tissue; she was already evaluated by Dr. Mack
Duonebs
Will follow along and consider systemic therapy options (chemo, immunotherapy, targeted therapy, etc), pending path results
Patient History
History of Present Illness
68 yo F who presented with 2 mo h/o progressive dyspnea, in the setting of COPD and prior tobacco use (quit in 2007). She also noted left hand clumsiness for the past week, dropping keys and other things. Evaluation in the ER included chest imaging,
showing a right upper lung mass, very likely malignant. Brain MRi shows a solitary brain mass, with surrounding edema.
Past-Medical/Surgical History
COPD
anxiety
SH: former smoker, quit in 2007
Patient Medication
�Medication �Instructions �Recorded �Confirmed �Last Taken �Type
acetaminophen 325 mg tablet 650 mg PO Q6HPRN PRN mild pain 08/19/24 08/19/24 Unknown History
(Tylenol)
albuterol sulfate 90 mcg/actuation 2 puff inhalation R Q6HPRN PRN sob 08/19/24 08/19/24 Unknown History
aerosol inhaler
clonazepam 0.5 mg disintegrating 0.5 mg PO DAILY Mental 08/19/24 08/19/24 Unknown History
tablet Health/Anxiety
fluticasone fur. 100 mcg-umeclid 1 inh inhalation R DAILY 08/19/24 08/19/24 Unknown History
62.5 mcg-vilant 25 mcg Lung/Breathing Issues
inhalat.powder (Trelegy Ellipta)
sertraline 25 mg tablet 25 mg PO DAILY Depression 08/19/24 08/19/24 Unknown History
Active Medications
Generic Name Dose Route Start Last Admin
Trade Name Freq PRN Reason Stop Dose Admin
Acetaminophen 650 mg 08/19/24 20:56
Acetaminophen 325 Mg Tablet PO 09/16/24 20:55
Q6HPRN PRN
mild pain
Albuterol Sulfate 2.5 mg 08/19/24 20:56
Albuterol Nebs 2.5 Mg/3 Ml Ampul INH
R Q4HPRN PRN
SOB
Protocol
Albuterol/Ipratropium 3 ml 08/19/24 20:56 08/20/24 15:28
Ipratropium 0.5/Albuterol 3 Mg (3 Ml Ampul) INH 3 ml
R QID CATRINA Administration
Protocol
Clonazepam 0.5 mg 08/20/24 22:00
Clonazepam 0.5 Mg Tablet PO 09/17/24 21:59
HS CATRINA
Lisinopril 20 mg 08/20/24 09:30 08/20/24 09:25
Lisinopril 20 Mg Tablet PO 09/17/24 09:29 20 mg
DAILY CATRINA Administration
Lorazepam 0.5 mg 08/20/24 11:01
Lorazepam 0.5 Mg Tablet PO 09/17/24 11:00
Q4HPRN PRN
anxiety
Methylprednisolone Sodium Succinate 40 mg 08/20/24 00:00 08/20/24 07:50
Methylprednisolone Pf 40 Mg/Ml Vial IV 09/17/24 00:00 40 mg
Q8H CATRINA Administration
Sodium Chloride 0 flush 08/20/24 10:00
Sodium Chloride 0.9% (Flush) Syringe IV 09/17/24 09:59
PER PROTOCOL CATRINA
Physical Exam
-
General: Well Developed, Well Nourished, No Apparent Distress and Comfortable
HEENT: Moist Mucous Membranes; Negative Jaundice
Cardiology: Normal Sinus Rhythm
Pulmonary: Clear
GI: Soft and Normal Bowel Sounds
Musculoskeletal: No Clubbing, No Cyanosis and No Edema
Neurology: Non Focal and No Word Finding Difficulty
Skin: Warm and Dry
Psych: Calm and Intact Judgement/Insight
Labs
Lab Results
WBC 10.0 10^3/uL (4.8-10.8) 08/20/24 06:26
RBC 4.44 10^6/uL (4.20-5.40) 08/20/24 06:26
Hgb 12.9 g/dL (12.0-16.0) 08/20/24 06:26
Hct 38.2 % (37.0-47.0) 08/20/24 06:26
MCV 86.0 fL (81.0-99.0) 08/20/24 06:26
MCH 29.1 pg (27.0-31.0) 08/20/24 06:26
MCHC 33.8 g/dL (33.0-37.0) 08/20/24 06:26
RDW 13.7 % (11.5-14.5) 08/20/24 06:26
Plt Count 438 10^3/uL (130-400) H 08/20/24 06:26
MPV 9.8 fL (7.4-10.4) 08/20/24 06:26
Abs Immat Gran (auto) 0.1 10^3/uL (0-0.05) H 08/19/24 14:50
Absolute Neuts (auto) 10.8 10^3/uL (1.4-6.5) H 08/19/24 14:50
Absolute Lymphs (auto) 1.2 10^3/uL (1.2-3.4) 08/19/24 14:50
Absolute Monos (auto) 0.9 10^3/uL (0.1-0.6) H 08/19/24 14:50
Absolute Eos (auto) 0.1 10^3/uL (0-0.7) 08/19/24 14:50
Absolute Basos (auto) 0.0 10^3/uL (0-0.2) 08/19/24 14:50
Immature Gran % 0.4 % (0-0.5) 08/19/24 14:50
Neutrophils % 83.1 % (42.2-75.2) H 08/19/24 14:50
Lymphocytes % 8.9 % (20.5-51.1) L 08/19/24 14:50
Monocytes % 6.9 % (1.7-9.3) 08/19/24 14:50
Eosinophils % 0.4 % (0-6) 08/19/24 14:50
Basophils % 0.3 % (0-2) 08/19/24 14:50
Creatinine 0.5 mg/dL (0.6-1.0) L 08/20/24 06:26
Vital Signs
Vital Signs
Temp Pulse Resp BP Pulse Ox
98.0 F 111 22 115/65 94
08/20/24 15:29 08/20/24 15:42 08/20/24 15:42 08/20/24 15:29 08/20/24 15:42
[2024-08-20] MEDS: LOVENOX 40 MG SC (18:03)
[2024-08-20 19:20] VITALS: BP 113/72
[2024-08-20 23:45] VITALS: BP 115/73
[2024-08-20] MEDS: ROBITUSSIN DM 5 ML PO (23:56)
[2024-08-21 03:31] VITALS: BP 131/71
[2024-08-21] MEDS: ATIVAN 0.5 MG PO (06:02)
[2024-08-21 07:10] VITALS: BP 147/80
[2024-08-21] MEDS: SOLU-MEDROL PF 40 MG IV ×2 (07:37→21:00)
[2024-08-21] MEDS: ZESTRIL 20 MG PO (07:38)
[2024-08-21] MEDS: DUONEB 3 ML INH ×4 (07:55→19:15)
--- NOTE | 2024-08-21 08:23 | W.PN.HOSP.TC ---
Today's Communication/Plan
-
see bold
Assessment / Plan
Assessment / Plan
HPI: 68y F with PMH significant for COPD and anxiety who presents to ED complaining of SOB. Patient states that her symptoms initially started in May. She had cough, fevers / chills, wheezing and SOB. She was seen by her Laundry Routeman at
that time (Dr. San @ [place]) and prescribed two course of steroids and antibiotics. Patient states that her fevers resolved; however, her dyspnea did not significantly improve and has only persisted since that time. Patient presented to
ED today for further evaluation.
#Right upper lobe mass suspicious for metastatic lung cancer
#Right parietal lobe lesion, likely cerebral metastases
Discussed with pulmonology, who plans for bronchoscopy with biopsy on Monday, 08/23
Discussed with neurosurgery, who states that her parietal lobe lesion is from metastases, not abscess
Appreciate oncology input, treatment plan to be determined by pathology results
Appreciate radiation oncology, who is discussing with neurosurgery whether or not to consider neurosurgery versus radiation for solitary brain metastasis
#Acute on chronic COPD exacerbation
Continue IV steroids, bronchodilators
#Acute hypoxic respiratory insufficiency
Currently requiring 3 L of oxygen, down from 4 L, wean as tolerated
She does not wear oxygen at home
#Generalized anxiety
Patient reports increased tremulousness on Lexapro and Zoloft, she wishes to discontinue both
Klonopin 0.5 mg TID prn
#Sinus tachycardia
Due to albuterol and anxiety
Monitor for now
DVT prophylaxis�subcu Lovenox
Full code
Updated family at bedside 08/20, 08/21
Total time spent to see the patient on the floor, examine the patient, review data and lab results, discuss treatment plan with patient, nursing staff around 51 minutes.
Physical Exam
General: No acute distress
HEENT: Normocephalic, Atraumatic, EOMI, MMM
Respiratory: Severely diminished lung sounds in all lung morgan
Cardiac: Normal S1/S2, Regular Rate and Rhythm
GI: Soft, Nontender, Nondistended, Normal Bowel Sounds
Extremities: No Clubbing, Cyanosis, or Edema
Neuro: Moderate tremors noted, left hand weakness noted
Psych: Calm, Cooperative
Anticipated Discharge: > 48 hours
Subjective/Interval History
-
Date of Service: August 21, 2024
Patient has severe coughing fits. Besides that, her breathing is improved when she is not coughing. She has associated soreness of her belly and chest muscles from coughing. She feels nauseous. No vomiting. No fever.
Objective Data
-
Vital Signs:
Vital Signs
Temp Pulse Resp BP Pulse Ox
97.5 F 104 16 147/80 96
08/21/24 07:10 08/21/24 07:58 08/21/24 07:58 08/21/24 07:10 08/21/24 07:58
I&O
08/20/24 08/21/24 08/22/24
06:59 06:59 06:59
Intake Total 480 / 480
Output Total 1200 / 1200
Balance -720 / -720
[2024-08-21] MEDS: OCEAN, SALINE MIST 2 SPRAYS NASAL ×2 (08:43→12:47)
[2024-08-21] MEDS: ROBITUSSIN DM 5 ML PO ×2 (08:43→12:46)
[2024-08-21] MEDS: KLONOPIN 0.5 MG PO ×2 (10:32→21:01)
[2024-08-21 11:15] VITALS: BP 147/98
--- NOTE | 2024-08-21 11:34 | W.PN.PUL3 ---
Addendum entered and electronically signed by Kimmie aMck MD 08/21/24 18:05:
Review neurosurgery corresponds
Will proceed with bronchoscopy 08/23/24 at 11:30 AM, the robot/EBUS
Nothing by mouth after midnight 08/22/24 for procedure 08/23/24
Original Note:
Today's Communication / Plan
-
Decrease steroids
Continue nebulized therapy
DVT prophylaxis
Await echocardiogram, spirometry
Patient high risk for anesthesia, procedure, options are limited
Tentative bronchoscopy 08/23, unless oncology prefers alternative path for tissue diagnosis
Assessment
-
68-year-old female with history of COPD, 80+ pack-year history of smoking, with progressive shortness of breath x 2 months treated with 2 courses of antibiotics/steroids. She presents with COPD exacerbation with abnormal imaging. We are asked to
comment on pulmonary process 08/20/2024
Acute COPD exacerbation
Treated with steroids/antibiotics x 2 over the past 6 weeks
5.5 cm right upper lobe mass encompassing a right upper lobe airway
Right lung volume loss
Subcarinal adenopathy
Scattered bilateral nodules
Ring-enhancing right frontal lobe mass 3.3 cm with surrounding edema, mild left shift
10 pound weight loss
Left hand weakness
Abnormal EKG
P pulmonology
Conditions present prior to admission
Emphysema/COPD
[id number] history of smoking quit 2007
Family history of emphysema (mother)
Plan/recommendations
At this time, patient with significant respiratory symptoms, progressive x 2 months
She appears to be improved overall, breath sounds slightly improved on exam
Current testing worrisome for primary lung malignancy with brain metastases
EKG concerning for chronic lung disease
Emphysema noted per CT chest
Lung mass with almost complete obstruction/encasement of right upper lobe airway
Moving forward
Continue with treatment for COPD exacerbation. Patient feels nebulized therapy helps with chest tightness
Continue with IV steroids, DuoNebs 4 times a day
Okay to reduce steroids to Solu-Medrol 40 mg every 12 hours. This is equivalent to 100 mg of prednisone
Abnormal EKG noted
Check echocardiogram, pending
Check bedside spirometry, pending for 08/22
She will require tissue biopsy
Strong suspicion for primary lung cancer with metastases. Less likely infection
remains off abx
Reviewed oncology correspondence radiation oncology was also consulted., Neurosurgery also consulted per oncology correspondence
Discussed possible need for bronchoscopy which can be done 08/23 for tissue biopsy. Will confirm plans for bronchoscopy 08/23 after above providers have reviewed
Reviewed at length with patient and multiple family members
DVT prophylaxis: Remains on enoxaparin
Will follow
Subjective Data
-
Date of Service:
Date of Service: August 21, 2024
Subjective:
Patient without any changes overall but may be slightly better with regards to breathing. Continues with cough, no hemoptysis. Denies chest pain, nausea. Family at bedside
Objective Data
Data Reviewed
Vital Signs / I&O / Oxygen:
Vital Signs
Temp Pulse Resp BP Pulse Ox
98.3 F 114 18 147/98 96
08/21/24 11:15 08/21/24 11:24 08/21/24 11:24 08/21/24 11:15 08/21/24 11:24
Intake and Output
08/20/24 08/21/24 08/22/24
06:59 06:59 06:59
Intake Total 480 / 480
Output Total 1200 / 1200
Balance -720 / -720
SaO2 96
Nasal Cannula flow liters per 3
minute
Physical Exam
General: Comfortable
HEENT: Normocephalic and Anicteric
Cardiovascular: S1-S2, Regular Rhythm, Murmur (n) and Rub (n)
Respiratory: Wheeze (Mild), Crackles (n), Rhonchi (n), Non-Labored Respirations and Other (Decreased breath sounds, bronchial)
GI: Soft, Non Distended and Non Tender
Neurology: Awake, Alert and No Motor Deficits
Skin: Cyanosis (n), Jaundice (n) and Rash (n)
Labs/Micro/Reports
Lab Data
08/20/24 06:26
08/20/24 06:26
Microbiology
08/19/24 15:00 Nasal Swab Influenza Types A & B (KATELYN) - Final
Negative for Influenza A & B, NAAT
Negative results must be combined with clinical observations
and patient history.
Nucleic Acid Amplification test (NAAT)performed on the
[email or web address] platform.
[2024-08-21 15:00] VITALS: BP 118/74
--- NOTE | 2024-08-21 16:07 | CON.NS ---
Consultation
-
Date/Time Consultation Performed: 08/21/2024; 16:07
Performing Provider: Makeda
Chief Complaint
History of Present Illness
Is a neurosurgical consultation on a 60-year-old female who presents on 08/19/2024 with shortness of breath. She reported that the symptoms have been ongoing for several months. She had seen her sawmill moulder operator at that time, and was prescribed a
course of steroids, and antibiotics. She was noted to be significantly dyspneic on it viral and received oxygen treatment. She had imaging that demonstrated right upper lung collapse, secondary to mass. She was also found to have scattered
nodules suspicious for metastasis. She was also noted to have left hand numbness, and weakness, therefore MRI of the brain was ordered, which revealed right sided brain mass.
Oncology, radiation oncology, as well as neurosurgery consulted with regards to commenting on right-sided brain mass. Patient continues to require oxygen treatment and plan is to wean as tolerated.
She was seen by pulmonology, and ultimately plan is to proceed with lung biopsy tentatively on 08/23/2024. It is noted based on their note today, that she is a high risk for anesthesia, procedure, and options are limited. She was seen by radiation
medicine, who discussed whether craniotomy was feasible given that it is a single solitary presumed metastasis. Neurosurgery asked to further evaluate.
Patient seen and examined. She denies any onset of headache. She denies any facial numbness, or left lower extremity weakness or numbness. She reports clumsiness with the left hand primarily. She denies any proximal left arm symptoms. She noted
that she was having difficulty typing, when she was working from home, and in fact even change keyboards, due to her apraxia/clumsiness.
Review of Systems
-
10 point review of systems was performed, which includes constitutional, ENT, cardiovascular, respiratory, GI, , hematologic, oncologic, endocrinologic, neurologic, musculoskeletal, was negative, except for stated in HPI.
Medication and Allergies
Home Medications
Home Medications
�Medication �Instructions �Recorded
acetaminophen 325 mg tablet 650 mg PO Q6HPRN PRN mild pain 08/19/24
(Tylenol)
albuterol sulfate 90 mcg/actuation 2 puff inhalation R Q6HPRN PRN sob 08/19/24
aerosol inhaler
clonazepam 0.5 mg disintegrating 0.5 mg PO DAILY Mental 08/19/24
tablet Health/Anxiety
fluticasone fur. 100 mcg-umeclid 1 inh inhalation R DAILY 08/19/24
62.5 mcg-vilant 25 mcg Lung/Breathing Issues
inhalat.powder (Trelegy Ellipta)
sertraline 25 mg tablet 25 mg PO DAILY Depression 08/19/24
Allergies
Allergies
Allergy/AdvReac Type Severity Reaction Status Date / Time
No Known Allergies Allergy Verified 08/19/24 14:27
Physical Exam
-
Exam:
Awake, alert, no apparent distress.
Pupils are equal round reactive to light
Extraocular movements are full without nystagmus
Face is symmetric, tongue is midline.
Motor: 5/5 strength bilaterally in upper extremities, except for slight left window glass cutter off weakness, strength 4+/5. 5/5 strength in lower extremities. No obvious pronator drift.
Head is normocephalic, atraumatic
Patient is thin
Neck is supple
Breathing: On oxygen therapy, with slight increased tachypnea.
Abdomen is nondistended
Cardiac: Regular rate
Extremities are warm
MRI of the brain performed on 08/20/2024 demonstrates right frontoparietal ring-enhancing mass measuring approximately 3.1 to 3.2 cm with extensive vasogenic edema. The internal contents of this ring-enhancing lesion do not appear to be
homogeneously DWI intense, consistent with likely metastatic mass, more so than cerebral abscess.
Problems
-
Problem Status Onset Code
Mass of right lung R91.8
COPD with exacerbation J44.1
Assessment / Plan
-
This is a 68-year-old female who presents with subacute onset of left upper extremity weakness and paresthesias, and progressive dyspnea. She was found to have a large right sided lung mass. Plan is for possible biopsy on 08/23/2024.
Her MRI does demonstrate a single solitary lesion with extensive vasogenic edema. While surgical excision of this, followed by stereotactic radiosurgery is feasible, patient would have to be cleared for craniotomy surgery from an anesthetic
perspective/pulmonary/cardiac standpoint.
Pulmonary note States that she is high risk for anesthesia.
At present time, recommend to proceed with lung biopsy for diagnosis. Patient can continue on steroids for now, and then can convert to dexamethasone 2 mg twice daily.
Keppra 500 mg twice daily
Can follow-up in the office to discuss surgical resection of mass if patient can be medically cleared for craniotomy surgery from pulmonary, cardiology, medical standpoint for general anesthesia.
Discussed extensively with the patient at bedside. She is in agreement with the plan.
[2024-08-21] MEDS: LOVENOX 40 MG SC (17:42)
[2024-08-21] MEDS: OCEAN, SALINE MIST NASAL ×2 (17:44→23:50)
[2024-08-21 19:05] VITALS: BP 126/79
[2024-08-21] MEDS: MUCINEX 600 MG PO (20:59)
[2024-08-21 23:04] VITALS: BP 135/83
[2024-08-22 03:00] VITALS: BP 141/77
[2024-08-22] MEDS: DUONEB 3 ML INH ×4 (07:22→19:24)
--- NOTE | 2024-08-22 07:27 | W.PN.HOSP.TC ---
Today's Communication/Plan
-
For bronchoscopy with biopsy tomorrow
Assessment / Plan
Assessment / Plan
HPI: 68y F with PMH significant for COPD and anxiety who presents to ED complaining of SOB. Patient states that her symptoms initially started in May. She had cough, fevers / chills, wheezing and SOB. She was seen by her Mitochondrial Disorders Counselor at
that time (Dr. San @ [place]) and prescribed two course of steroids and antibiotics. Patient states that her fevers resolved; however, her dyspnea did not significantly improve and has only persisted since that time. Patient presented to
ED today for further evaluation.
#Right upper lobe mass suspicious for metastatic lung cancer
#Right parietal lobe lesion, likely cerebral metastases
Discussed with pulmonology, who plans for bronchoscopy with biopsy on Monday, 08/23
Discussed with neurosurgery, who states that her parietal lobe lesion is from metastases, not abscess
Appreciate oncology input, treatment plan to be determined by pathology results
Appreciate radiation oncology/neurosurgery, follow-up with neurosurgery outpatient to discuss surgical resection of the mass
Started on Keppra for seizure prophylaxis
#Acute on chronic COPD exacerbation
Wean IV steroids, then can transition to dexamethasone 2 mg p.o. daily
Continue bronchodilators, Mucinex
#Acute hypoxic respiratory insufficiency
Currently requiring 3 L of oxygen, down from 4 L, wean as tolerated
She does not wear oxygen at home
#Generalized anxiety
Patient reports increased tremulousness on Lexapro and Zoloft, she wishes to discontinue both
Klonopin 0.5 mg TID prn
#Sinus tachycardia
Due to albuterol and anxiety
Monitor for now
DVT prophylaxis�subcu Lovenox
Full code
Updated family at bedside 08/20, 08/21, 08/22
Total time spent to see the patient on the floor, examine the patient, review data and lab results, discuss treatment plan with patient, nursing staff around 41 minutes.
Physical Exam
General: No acute distress
HEENT: Normocephalic, Atraumatic, EOMI, MMM
Respiratory: Severely diminished lung sounds in all lung morgan
Cardiac: Normal S1/S2, Regular Rate and Rhythm
GI: Soft, Nontender, Nondistended, Normal Bowel Sounds
Extremities: No Clubbing, Cyanosis, or Edema
Neuro: Moderate tremors noted, left hand weakness noted
Psych: Calm, Cooperative
Anticipated Discharge: > 48 hours
Subjective/Interval History
-
Date of Service: August 22, 2024
Patient reports improvement in her coughing and breathing. She still has dyspnea with activity. No chest pain. No fever, no vomiting.
Objective Data
-
Vital Signs:
Vital Signs
Temp Pulse Resp BP Pulse Ox
98.1 F 97 18 141/77 97
08/22/24 03:00 08/22/24 07:26 08/22/24 07:26 08/22/24 03:00 08/22/24 07:26
I&O
08/21/24 08/22/24 08/23/24
06:59 06:59 06:59
Intake Total 480 / 480 240 / 240
Output Total 1200 / 1200
Balance -720 / -720 240 / 240
[2024-08-22 07:54] VITALS: BP 133/75
--- NOTE | 2024-08-22 08:42 | W.PN.ONC2 ---
Today's Communication / Plan
-
await tissue diagnosis
Close OP follow up will be arranged upon discharge
Impression
Impression
suspected right lung cancer, with solitary NATURAL SCIENCES MANAGER met
dyspnea
left hand clumsiness/paresthesia
Plan
Plan
Clinical picture most c/w stage IV lung cancer
solitary lesion with extensive vasogenic edema-neurosurgical approch is feasible, however, high risk anesthsia per pulmonary
continue steroids GI ppx.
08/23/24 plan for EBUS
Will follow along and consider systemic therapy options (chemo, immunotherapy, targeted therapy, etc), pending path results
Subjective/Objective
Subjective
afebrile, no hypotension, 3L NC
using guaifenesin & guaifenesin DM with improved cough
no change in left hand paraesthesia
at bedside during visit
Vital Signs:
Vital Signs
Temp Pulse Resp BP Pulse Ox
97.4 F 96 17 133/75 97
08/22/24 07:54 08/22/24 07:54 08/22/24 07:54 08/22/24 07:54 08/22/24 07:54
Lab Results:
Laboratory Data
WBC 10.0 10^3/uL (4.8-10.8) 08/20/24 06:26
Hgb 12.9 g/dL (12.0-16.0) 08/20/24 06:26
Plt Count 438 10^3/uL (130-400) H 08/20/24 06:26
PT 13.3 Sec (11.4-14.6) 08/19/24 15:00
INR 1.03 08/19/24 15:00
APTT 33.5 Sec (23.4-35.0) 08/19/24 15:00
eGFR > 60.00 08/20/24 06:26
Physical Exam
General: Well Developed, Well Nourished, No Apparent Distress and Comfortable
HEENT: Moist Mucous Membranes; Negative Jaundice
Cardiology: Normal Sinus Rhythm
Pulmonary: Clear
GI: Soft
Ext No Edema
Neurology: A&O3, speech clear, tremor bilateral hands
Skin: Warm and Dry
Psych: Calm
[2024-08-22] MEDS: KEPPRA 500 MG PO ×2 (08:49→20:29)
[2024-08-22] MEDS: MUCINEX 600 MG PO ×2 (08:49→20:29)
[2024-08-22] MEDS: ZESTRIL 20 MG PO (08:49)
[2024-08-22] MEDS: KLONOPIN 0.5 MG PO ×3 (08:49→21:53)
[2024-08-22] MEDS: SOLU-MEDROL PF 40 MG IV (08:50)
[2024-08-22] MEDS: OCEAN, SALINE MIST 2 SPRAYS NASAL ×3 (08:51→17:55)
[2024-08-22 12:21] VITALS: BMI 19.8
--- NOTE | 2024-08-22 12:29 | W.PN.PUL3 ---
Today's Communication / Plan
-
Bronchoscopy tomorrow
N.p.o.
Continue IV corticosteroids-decrease dosing today
Continue nebulizer therapy
Oxygen supplementation to maintain pulse ox above 90%
Assessment
-
68-year-old female with history of COPD, 80+ pack-year history of smoking, with progressive shortness of breath x 2 months treated with 2 courses of antibiotics/steroids. She presents with COPD exacerbation with abnormal imaging. We are asked to
comment on pulmonary process 08/20/2024
Acute COPD exacerbation
Treated with steroids/antibiotics x 2 over the past 6 weeks
5.5 cm right upper lobe mass encompassing a right upper lobe airway
Right lung volume loss
Subcarinal adenopathy
Scattered bilateral nodules
Ring-enhancing right frontal lobe mass 3.3 cm with surrounding edema, mild left shift
10 pound weight loss
Left hand weakness
Abnormal EKG
P pulmonology
Conditions present prior to admission
Emphysema/COPD
[id number] history of smoking quit 2007
Family history of emphysema (mother)
Plan/recommendations
Respiratory status remains unchanged
Chronic/acute shortness of breath not worsening.
Current testing worrisome for primary lung malignancy with brain metastases
Spirometry with severe airflow obstruction and suggestion of hyperinflation-Emphysema noted per CT chest
-
Lung mass with almost complete obstruction/encasement of right upper lobe airway-likely malignant.
-
Continue with treatment for COPD exacerbation. Patient feels nebulized therapy helps with chest tightness
Continue with IV steroids, DuoNebs 4 times a day
Will Solu-Medrol decrease to 20 mg IV every 12 hours. Hopefully can transition to prednisone tomorrow if clinically improved. Eventually per neurosurgery's note will be converted to 2 mg of dexamethasone twice daily.
Abnormal EKG noted
Echocardiogram 08/21/2024: Report reviewed. Showed normal LVEF. No significant valvular abnormalities. Small pericardial effusion.
Spirometry noted: FEV1 0.34 L or 22% very severe airflow obstruction. Suggestion of air trapping and hyperinflation.
From the pulmonary perspective she will be at high risk for any procedure that includes general anesthesia.
She will require tissue biopsy
Strong suspicion for primary lung cancer with metastases. Less likely infection
remains off abx
Reviewed oncology correspondence radiation oncology was also consulted.,
Neurosurgery correspondence reviewed: At this point holding off on resection. Recommending outpatient follow-up after tissue diagnosis. From the pulmonary perspective given FEV1 and acute exacerbation high risk for anesthesia.
-
Schedule robotic guidance bronchoscopy which can be done 08/23 for tissue biopsy.
N.p.o. after midnight
Dr. Mack Reviewed at length with patient and multiple family members
DVT prophylaxis: Remains on enoxaparin
Will follow
Subjective Data
-
Date of Service:
Date of Service: August 22, 2024
Chief Complaint: Pulmonary Follow Up (Pulmonary mass/COPD exacerbation)
Subjective:
No new complaints
Respiratory status slowly improving
No new neurological symptoms
Review of Systems
Cardiopulmonary: Dyspnea (n), Dyspnea on Exertion and Cough
GI: Abdominal Pain (n)
Objective Data
Data Reviewed
Vital Signs / I&O / Oxygen:
Vital Signs
Temp Pulse Resp BP Pulse Ox
97.4 F 101 20 133/75 97
08/22/24 07:54 08/22/24 11:30 08/22/24 11:30 08/22/24 07:54 08/22/24 11:30
Intake and Output
08/21/24 08/22/24 08/23/24
06:59 06:59 06:59
Intake Total 480 / 480 240 / 240
Output Total 1200 / 1200
Balance -720 / -720 240 / 240
SaO2 97
Nasal Cannula flow liters per 3
minute
Physical Exam
General: Comfortable
HEENT: Normocephalic and Anicteric
Cardiovascular: S1-S2, Regular Rhythm, Murmur (n) and Rub (n)
Respiratory: Wheeze (Mild), Crackles (n), Rhonchi (n), Non-Labored Respirations and Other (Decreased breath sounds, bronchial)
GI: Soft, Non Distended and Non Tender
Neurology: Awake, Alert and No Motor Deficits
Skin: Cyanosis (n), Jaundice (n) and Rash (n)
Labs/Micro/Reports
Lab Data
08/20/24 06:26
08/20/24 06:26
Microbiology
08/19/24 15:00 Nasal Swab Influenza Types A & B (KATELYN) - Final
Negative for Influenza A & B, NAAT
Negative results must be combined with clinical observations
and patient history.
Nucleic Acid Amplification test (NAAT)performed on the
[employer] platform.
[2024-08-22 12:30] VITALS: BP 145/85
[2024-08-22] MEDS: PROTONIX 40 MG PO (13:50)
[2024-08-22 15:32] VITALS: BP 133/89
--- NOTE | 2024-08-22 16:39 | CM ---
Reviewed chart, met with patient to obtain information for assessment. Patient stated that she lives with her spouse who was at bedside in a two story home with two steps to enter. She described herself as independent with her ADLs, personal care,
dressing and bathing. 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 She drives and can get to her appointments and do all of her own shopping. For the past month her spouse has been assisting her as she has not felt well.
Patient has never had VN services.
She denied any DME in her home. She is now on o2.
Patient has not been to a SNF.
Patient asked for information for COPD support groups, will explore resources.
Patient stated that she would be agreeable if, VN is indicated.
Plan: Case management will follow and assist with discharge planning. Home possibly with VN and will watch for o2 needs.
[2024-08-22] MEDS: LOVENOX 40 MG SC (17:55)
[2024-08-22 19:59] VITALS: BP 122/70
[2024-08-22] MEDS: SOLU-MEDROL PF 20 MG IV (20:29)
[2024-08-22] MEDS: OCEAN, SALINE MIST NASAL (20:46)
[2024-08-22 23:32] VITALS: BP 132/80
[2024-08-23] VITALS (11 sets, daily range): BP systolic 54–158; BP diastolic 35–98
[2024-08-23] MEDS: DUONEB 3 ML INH ×3 (07:22→15:26)
[2024-08-23] MEDS: SOLU-MEDROL PF 20 MG IV (08:29)
[2024-08-23] MEDS: MUCINEX 600 MG PO (08:30)
[2024-08-23] MEDS: ZESTRIL 20 MG PO (08:30)
[2024-08-23] MEDS: PROTONIX 40 MG PO (08:30)
[2024-08-23] MEDS: OCEAN, SALINE MIST 2 SPRAYS NASAL (08:33)
[2024-08-23] MEDS: KEPPRA 500 MG PO (08:33)
--- NOTE | 2024-08-23 09:02 | W.PN.ONC2 ---
Today's Communication / Plan
-
Bronch biopsy today
nutrition
My office will call to schedule OP follow up upon discharge
I discussed case with radiation oncology who will also call pt to arrange follow up upon discharge
Impression
Impression
suspected right lung cancer, with solitary MANAGER TALENT met
COPD exacerbation
left hand clumsiness/paresthesia
weight loss
Plan
Plan
Clinical picture most c/w stage IV lung cancer
solitary lesion with extensive vasogenic edema-appreciate neurosurgery input-pt does not plan to undergo neurosurgery
Case reviewed with radiation oncology who will arrange OP follow up upon discharge
continue steroids GI ppx.
plan for EBUS today -will follow for path
Will follow along and consider systemic therapy options (chemo, immunotherapy, targeted therapy, etc), pending path results
>50% visit was spent on education, counseling and coordination of care - 35min
Subjective/Objective
Subjective
afebrile, no hypotension, 1.5-3L NC
denies pain
improved cough and SOB
L hand paraesthesia persists
and 2 adult children at bedside, questions answered
Vital Signs:
Vital Signs
Temp Pulse Resp BP Pulse Ox
97.9 F 69 16 150/81 96
08/23/24 07:49 08/23/24 08:30 08/23/24 07:49 08/23/24 08:30 08/23/24 07:49
Lab Results:
Laboratory Data
WBC 10.0 10^3/uL (4.8-10.8) 08/20/24 06:26
Hgb 12.9 g/dL (12.0-16.0) 08/20/24 06:26
Plt Count 438 10^3/uL (130-400) H 08/20/24 06:26
PT 13.3 Sec (11.4-14.6) 08/19/24 15:00
INR 1.03 08/19/24 15:00
APTT 33.5 Sec (23.4-35.0) 08/19/24 15:00
eGFR > 60.00 08/20/24 06:26
Physical Exam
General: Well Developed, Well Nourished, No Apparent Distress and Comfortable
HEENT: Moist Mucous Membranes; Negative Jaundice
Cardiology: Normal Sinus Rhythm
Pulmonary: Clear
GI: Soft
Ext No Edema
Neurology: A&O3, speech clear, tremor bilateral hands
Skin: Warm and Dry
Psych: Calm
--- NOTE | 2024-08-23 09:20 | W.PN.HOSP.TC ---
Today's Communication/Plan
-
For bronchoscopy with biopsy today
Assessment / Plan
Assessment / Plan
HPI: 68y F with PMH significant for COPD and anxiety who presents to ED complaining of SOB. Patient states that her symptoms initially started in May. She had cough, fevers / chills, wheezing and SOB. She was seen by her Concrete Paving Machine Operator at
that time (Dr. San @ [place]) and prescribed two course of steroids and antibiotics. Patient states that her fevers resolved; however, her dyspnea did not significantly improve and has only persisted since that time. Patient presented to
ED today for further evaluation.
#Right upper lobe mass suspicious for metastatic lung cancer
#Right parietal lobe lesion, likely cerebral metastases
Discussed with pulmonology, who plans for bronchoscopy with biopsy today
Discussed with neurosurgery, who states that her parietal lobe lesion is from metastases, not abscess
Appreciate oncology input, treatment plan to be determined by pathology results
Appreciate radiation oncology/neurosurgery, patient is too high risk for craniotomy
Plan for gamma knife radiation versus whole whole brain radiation outpatient
Started on Keppra for seizure prophylaxis
#Acute on chronic COPD exacerbation
IV steroids as per pulm, then can transition to dexamethasone 2 mg p.o. daily
Continue bronchodilators, Mucinex
#Acute hypoxic respiratory insufficiency
Currently requiring 1.5L, down from 3 L of oxygen, down from 4 L, wean as tolerated
She does not wear oxygen at home
#Essential hypertension
Blood pressure improved with starting lisinopril 20 mg daily this admission
#Generalized anxiety
Patient reports increased tremulousness on Lexapro and Zoloft, she wishes to discontinue both
Klonopin 0.5 mg TID prn
#Sinus tachycardia
Due to albuterol and anxiety
Monitor for now
#Constipation
Start laxatives after bronchoscopy
DVT prophylaxis�subcu Lovenox
Full code
Updated family at bedside 08/20, 08/21, 08/22, 08/23
Discussed with oncology, radiation oncology, neurosurgery, pulmonology
Total time spent to see the patient on the floor, examine the patient, review data and lab results, discuss treatment plan with patient, nursing staff around 51 minutes.
Physical Exam
General: No acute distress
HEENT: Normocephalic, Atraumatic, EOMI, MMM
Respiratory: Severely diminished lung sounds in all lung mogran
Cardiac: Normal S1/S2, Regular Rate and Rhythm
GI: Soft, Nontender, Nondistended, Normal Bowel Sounds
Extremities: No Clubbing, Cyanosis, or Edema
Neuro: Moderate tremors noted, left hand weakness noted
Psych: Calm, Cooperative
Anticipated Discharge: > 48 hours
Subjective/Interval History
-
Date of Service: August 22, 2024
Patient is nervous for her procedure today. Cough and shortness of breath continues to improve. She reports constipation. No fever, no vomiting.
Objective Data
-
Vital Signs:
Vital Signs
Temp Pulse Resp BP Pulse Ox
97.7 F 109 17 145/85 95
08/22/24 12:30 08/22/24 12:30 08/22/24 12:30 08/22/24 12:30 08/22/24 12:30
I&O
08/21/24 08/22/24 08/23/24
06:59 06:59 06:59
Intake Total 480 / 480 240 / 240
Output Total 1200 / 1200
Balance -720 / -720 240 / 240
--- NOTE | 2024-08-23 11:38 | W.PN.PUL3 ---
Today's Communication / Plan
-
Bronchoscopy today
Continue IV corticosteroids, transition to prednisone tomorrow
Continue nebulizers
Assessment
-
68-year-old female with history of COPD, 80+ pack-year history of smoking, with progressive shortness of breath x 2 months treated with 2 courses of antibiotics/steroids. She presents with COPD exacerbation with abnormal imaging. We are asked to
comment on pulmonary process 08/20/2024
Acute COPD exacerbation
Treated with steroids/antibiotics x 2 over the past 6 weeks
5.5 cm right upper lobe mass encompassing a right upper lobe airway
Right lung volume loss
Subcarinal adenopathy
Scattered bilateral nodules
Ring-enhancing right frontal lobe mass 3.3 cm with surrounding edema, mild left shift
10 pound weight loss
Left hand weakness
Abnormal EKG
P pulmonology
Conditions present prior to admission
Emphysema/COPD
[id number] history of smoking quit 2007
Family history of emphysema (mother)
Plan/recommendations
Respiratory status remains unchanged
Chronic/acute shortness of breath not worsening.
Current testing worrisome for primary lung malignancy with brain metastases
Spirometry with severe airflow obstruction and suggestion of hyperinflation-Emphysema noted per CT chest
-
Lung mass with almost complete obstruction/encasement of right upper lobe airway-likely malignant.
-
Continue with treatment for COPD exacerbation. Patient feels nebulized therapy helps with chest tightness
Continue with IV steroids, DuoNebs 4 times a day
Usually on Trelegy in the outpx setting but feels better with nebs, would DC on Duoneb and pulmicort upon DC.
Will Solu-Medrol decrease to 20 mg IV every 12 hours. Plan to transition to oral steroids tomorrow if clinically improved.. Eventually per neurosurgery's note will be converted to 2 mg of dexamethasone twice daily.
Abnormal EKG noted
Echocardiogram 08/21/2024: Showed normal LVEF. No significant valvular abnormalities. Small pericardial effusion.
Spirometry noted: FEV1 0.34 L or 22% very severe airflow obstruction. Suggestion of air trapping and hyperinflation.
From the pulmonary perspective she will be at high risk for any procedure that includes general anesthesia.
For robotic bronchoscopy today for tissue biopsy.
Strong suspicion for primary lung cancer with metastases. Less likely infection
remains off abx
-
Oncology/radiation oncology following.
Neurosurgery correspondence reviewed: At this point holding off on resection. Recommending outpatient follow-up after tissue diagnosis. From the pulmonary perspective given FEV1 and acute exacerbation high risk for anesthesia.
-
Schedule robotic guidance bronchoscopy which can be done 08/23 for tissue biopsy.
N.p.o. for now.
Dr. Boswell discussed with patient and on 08/22/[address] Mack Reviewed at length with patient and multiple family members
DVT prophylaxis: Remains on enoxaparin
Will follow
Subjective Data
-
Date of Service:
Date of Service: August 23, 2024
Chief Complaint: Pulmonary Follow Up (Pulmonary mass/COPD exacerbation)
Subjective:
No new complaints overnight
Continues to report shortness of breath with activity
Review of Systems
Cardiopulmonary: Dyspnea, Dyspnea on Exertion and Cough
Objective Data
Data Reviewed
Vital Signs / I&O / Oxygen:
Vital Signs
Temp Pulse Resp BP Pulse Ox
97.9 F 101 18 150/81 95
08/23/24 07:49 08/23/24 11:11 08/23/24 11:11 08/23/24 08:30 08/23/24 11:11
Intake and Output
08/22/24 08/23/24 08/24/24
06:59 06:59 06:59
Intake Total 240 / 240 960 / 960
Balance 240 / 240 960 / 960
SaO2 95
Nasal Cannula flow liters per 1.5
minute
Physical Exam
General: Comfortable
HEENT: Normocephalic and Anicteric
Cardiovascular: S1-S2, Regular Rhythm, Murmur (n) and Rub (n)
Respiratory: Wheeze (Mild), Crackles (n), Rhonchi (n), Non-Labored Respirations and Other (Decreased breath sounds, bronchial)
GI: Soft, Non Distended and Non Tender
Neurology: Awake, Alert and No Motor Deficits
Skin: Cyanosis (n), Jaundice (n) and Rash (n)
Labs/Micro/Reports
Lab Data
08/20/24 06:26
08/20/24 06:26
--- NOTE | 2024-08-23 12:45 | SUR.PHASEI ---
PT arrived to PACU, after report noted odd rhythm, notified Dr Go, obtained EKG,, PT did c/o pain midsternum, activated STEMI alert and pushed CODE button, DR Gonsalez, Dr Mack, DR Hirsch, DR Vazquez, and DR Go at bedside, PT to go to Cath
lab emergently, 0.4 SL Nitro given, 5000 units Heparin, 324 Aspirin given, PT taken to laboratory equipment installer
--- NOTE | 2024-08-23 13:08 | SUR.PHASEI ---
STEMI Note- Recorder
1245: Patient arrived to the PACU from GI lab, placed on monitor, RN Mickie Uriarte noted EKG abnormalities on monitor. Pt. was minimally responsive at the time but opens eyes to commands. Formal EKG completed and RN Noted STEMI. RN requested MD Go
to bedside immediately.
1249: Anesthesiologist George arrived to bedside and immediately called STEMI alert.
1255: Donavan Nelson and vp hr diversity Wallace & Torrey both arrived to bedside and evaluating patient. MINNIE Blevins arrived to bedside for evaluation. PACU team placing patient on cardiac pads and preparing patient for transport to laborer cutting tool.
1258: Attorney Lawyer request Heparin bolus, sublingual Nitro and ASA bolus.
1300: 0.4mg of nitroglycerin administered sublingually by DOOR TO DOOR SELLING DISTRIBUTOR after Wallace Verbal order
1305: 5000 units of heparin administered by MINNIE Blevins IV push
1306: 325mg of PO Aspirin was administered after Guide verbal order
1310: Pt. was transported to laborer cutting tool with MD Hirsch, MINNIE Blevins, and MD Vazquez
1320: PACU team debriefed
[2024-08-23] MEDS: OCEAN, SALINE MIST NASAL (13:20)
[2024-08-23 13:25] LABS: ACT-LR - POC 239 Seconds (116-155)
--- NOTE | 2024-08-23 13:27 | W.PN.UPDATE ---
Update Note
Progress Note Update
Please see bronchoscopy note for complete details
Patient was seen preprocedure with family this am to review procedure details, risks of anesthesia, biopsy and consent obtained by me.
At that time patient feeling better than yesterday, less short of breath. No complaints
Procedure completed in 30 minutes without any issues
In PACU, patient noted to have chest pain, EKG with lateral ST changes. STEMI alert called
Systolic pressure 140s/90's, heart rate 107
Patient answering questions, denies shortness of breath, nausea but admitted to the mild chest discomfort, improved following nitroglycerin
Patient was given nitroglycerin, oral aspirin per cards
Cardiology was at bedside. Patient taken to the Compensation Analyst emergently
Updated family at length (, daughter, son)
Gum Maker also reviewed with family EKG changes and plan for cath
Updated primary service, oncology, pulmonary regarding above
[2024-08-23 13:41] LABS: ACT-LR - POC 240 Seconds (116-155)
[2024-08-23 13:54] LABS: % Basophils 0.1 % (0-2); % Eosinophils 0.1 % (0-6); % Immature Granulocytes 0.7 % (0-0.5); % Lymphocytes 6.6 % (20.5-51.1); % Monocytes 6.9 % (1.7-9.3); % Neutrophils 85.6 % (42.2-75.2); Absolute Immature Granulocytes 0.1 10^3/uL (0-0.05); Absolute Lymphocytes 0.9 10^3/uL (1.2-3.4); Absolute Neutrophils 12.2 10^3/uL (1.4-6.5); Hematocrit 37.6 % (37.0-47.0); Hemoglobin 12.3 g/dL (12.0-16.0); Mean Corp Hgb Conc. 32.7 g/dL (33.0-37.0); Mean Corpuscular Hgb 29.1 pg (27.0-31.0); Mean Corpuscular Volume 89.1 fL (81.0-99.0); Nucleated Red Blood Cells % 0 %; Platelet Count 471 10^3/uL (130-400); Red Blood Cell Count 4.22 10^6/uL (4.20-5.40); Red Cell Dist. Width 13.8 % (11.5-14.5); White Blood Cell Count 14.3 10^3/uL (4.8-10.8)
[2024-08-23 14:14] LABS: INR 1.26; PT 15.6 Sec (11.4-14.6)
[2024-08-23 14:29] LABS: APTT > 200 Sec (23.4-35.0)
[2024-08-23 14:36] LABS: Glucose - Point of Care 237 mg/dl (70-99)
[2024-08-23 14:54] LABS: Hemoglobin 11.2 g/dL (12.0-16.0); Mean Corp Hgb Conc. 32.9 g/dL (33.0-37.0); Mean Corpuscular Hgb 28.3 pg (27.0-31.0); Mean Corpuscular Volume 85.9 fL (81.0-99.0); Mean Platelet Volume 9.6 fL (7.4-10.4); Platelet Count 429 10^3/uL (130-400); Red Blood Cell Count 3.96 10^6/uL (4.20-5.40); Red Cell Dist. Width 13.8 % (11.5-14.5)
[2024-08-23 14:55] LABS: ACT-LR - POC 187 Seconds (116-155)
--- NOTE | 2024-08-23 15:03 | PTCARENOTE ---
Received pt from laborer chemical processing post cardiac cath. Right femoral arterial line to pressure bag and monitor. NBP 82/70, Arterial BP 58/41. Pt's heart rate 105. Pt stated that she was feeling nauseaus. IVF's wide open. notified. A rapid response
was called. Pt transferred to ICU.
--- NOTE | 2024-08-23 15:09 | RR ---
A Rapid Response was called on this patient, please see Rapid Response form.
--- NOTE | 2024-08-23 15:21 | CON.CAR ---
Addendum entered and electronically signed by Hao Hirsch MD 08/23/24 16:56:
Attending addendum: Patient seen post bronchoscopy with biopsy. ECG concerning for an evolving anterolateral wall myocardial infarction. She was referred for emergency coronary angiography and was found to have a Takotsubo type cardiomyopathy.
She remained hemodynamically stable during the procedure and went to the IVU where she suddenly became hypotensive. A she received IV fluids and phenylephrine bolus then infusion. She was transferred to the ICU where she became less interactive
and experienced PEA. CPR was initiated. I placed a left femoral venous line. Prolonged resuscitative efforts were not successful. Refer to note
Original Note:
Consultation
Consultation Request
Date/Time Consultation Performed: 08/23/24
Requesting Provider: Dr. Mack
Performing Provider: Kathi Torres PA-C for Dr. Hirsch
Reason for Consultation: STEMI
Medical History
-
Chief Complaint: SOB
History of Present Illness:
Patient is a 68 yo F with PMH of COPD and anxiety who presented to due to SOB. She had noted fevers, chills, wheezing, SOB, cough. Had been treated by her OP endbander with steroids and abx with some improvement however SOB persisted. By
imaging this admission found to have R lung mass and brain imaging with evidence of concern for metastasis. She underwent bronch with biopsy today. Post procedure patient noted to have CP with lateral ST elevation by EKG. Patient given nitro and
asa. Taken urgently to lab rn and STEMI. Found to be consistent with takotsubo CM with nonobstructive CAD and EF newly reduced ~20% compared to prior from 2 days ago by echo. LVEDP 20. Upon arrival to IVU patient noted to be hypotensive with BP
82/70 with nausea and continued to drop. Rapid response called. Patient placed in Trendelenburg with IVF through pressure bag. Remained hypotensive and given 2 IV pushes of 100mcg phenylephrine followed by initiation of phenylephrine infusion @40.
Uptitrated to 60 and transferred to ICU.
PMH:
COPD
Anxiety
Past Medical History
Past Medical History: Other (in HPI)
Social History
Tobacco: Former Smoker
Alcohol: Occasional
Personal:
Living: With Family
Family History
Family History: Cancer and Hypertension
Allergies / Home Medications
Allergy/AdvReac Type Severity Reaction Status Date / Time
No Known Allergies Allergy Verified 08/19/24 14:27
�Medication �Instructions �Recorded �Confirmed �Type
acetaminophen 325 mg tablet 650 mg PO Q6HPRN PRN mild pain 08/19/24 08/19/24 History
(Tylenol)
albuterol sulfate 90 mcg/actuation 2 puff inhalation R Q6HPRN PRN sob 08/19/24 08/19/24 History
aerosol inhaler
clonazepam 0.5 mg disintegrating 0.5 mg PO DAILY Mental 08/19/24 08/19/24 History
tablet Health/Anxiety
fluticasone fur. 100 mcg-umeclid 1 inh inhalation R DAILY 08/19/24 08/19/24 History
62.5 mcg-vilant 25 mcg Lung/Breathing Issues
inhalat.powder (Trelegy Ellipta)
sertraline 25 mg tablet 25 mg PO DAILY Depression 08/19/24 08/19/24 History
Review of Systems
-
History Source: Patient
All other systems: Negative unless noted
Physical Exam
Vital Signs
Temp Pulse Resp BP Pulse Ox
98 F 113 27 63/42 97
08/23/24 11:42 08/23/24 14:45 08/23/24 14:45 08/23/24 14:40 08/23/24 14:45
Lab Results
Troponin I < 0.012 ng/ml 08/19/24 14:50
Zch-D-Fxlzyvnfnex Pept 200 pg/ml 08/19/24 14:50
Physical Exam
General: Other (pale, nauseous)
HEENT: Normocephalic and Anicteric
Respiratory: Wheezes (B/L) and Non Labored Respirations
Cardiac: S1/S2 and Regular Rhythm
GI: Soft, Non Tender and Non Distended
Musculoskeletal: No Clubbing, No Cyanosis and No Edema
Skin: Warm and Dry
Neuro: AO x 3
Impression / Plan
-
Primary Flow Worker: none prior to admission
Assessment:
Presentation with SOB
Acute COPD exacerbation
5.5 cm right upper lobe mass encompassing a right upper lobe airway s/p bronchoscopy and biopsy 08/23/24
Post procedure EKG changes, chest discomfort
Takotsubo CM with new EF reduction by cath 08/23/24
Hypotension
Subcarinal adenopathy
Scattered bilateral nodules
Ring-enhancing right frontal lobe mass 3.3 cm with surrounding edema, mild left shift
10 pound weight loss
Left hand weakness
ECHO 08/21/24: EF normal, no significant valvular disease, small pericardial effusion without hemodynamic compromise
Cath 08/23/24: nonobstructive CAD, evidence of takotsubo CM
Plan:
-Patient presented with SOB. Treating for acute COPD exacerbation. imaging revealed 5.5cm RUL mass and R frontal lobe mass concerning for metastasis. underwent bronchoscopy today with biopsy however post procedure noted to have CP and lateral ST
elevations. She was taken urgently to lab rn and noted to have nonobstructive CAD consistent with takotsubo CM. Upon arrival to IVU, patient noted to be hypotensive with worsening. She was given IVF through pressure bag and started phenylephrine,
which was uptitrated. She was transferred to ICU for further mgmt.
-shortly after arrival to ICU, patient was noted to have widening of QRS and subsequent loss of consciousness and pulse. CPR promptly initiated with multiple rounds of epi. Patient intubated. Femoral line placed at bedside. ECHO at bedside with
small amount of pericardial fluid, without significant change compared to prior echo from 08/21. After approximately 30 minutes of code, family brought in, and patient pronounced.
-d/w nursing, cereal supervisor
-CCT 106 minutes
Data Reviewed
-
EKG: Tracing Personally Visualized and interpreted
Radiology: Report Reviewed by me
Medical Tests (Nuc Med, Echo etc): Report Reviewed by me
Labs: Labs Reviewed by me
Old Records: Reviewed
[2024-08-23 15:22] LABS: ALT (SGPT) 31 U/L (0-35); AST (SGOT) 45 U/L (14-36); Albumin 3.7 g/dl (3.5-5.0); Alkaline Phosphatase 89 U/L (38-126); Blood Urea Nitrogen 21 mg/dl (7-17); Calcium 8.5 mg/dl (8.4-10.2); Carbon Dioxide 26 mmol/L (22-30); Chloride 99 mmol/L (98-107); Estimated Creatinine Clearance 55 ml/min; Glucose 204 mg/dl (70-99); Sodium 137 mmol/L (135-145); Total Bilirubin 0.6 mg/dl (0.2-1.3); eGFR > 60.00
--- NOTE | 2024-08-23 15:25 | W.PN.INTV ---
Today's Communication / Plan
Recommendations
Transfer to ICU for further management on phenylephrine drip
Low threshold to intubate
High risk for clinical deterioration
Given her small stature with mottled lower extremities, high risk for negative outcome if mechanical support device was inserted for LV assistance, including lower extremity ischemia
Maintain SpO2 88-95%
Guarded prognosis
Assessment
-
68-year-old female with history of COPD, 80+ pack-year history of smoking, with progressive shortness of breath x 2 months treated with 2 courses of antibiotics/steroids. She presents with COPD exacerbation with abnormal imaging. We were asked to
comment on pulmonary process 08/20/2024; she underwent robotic bronchoscopy for right upper lobe mass on 08/23/2024 with rapid onsite pathology showing evidence of malignancy. After the procedure patient was complaining of chest pain and brought
to the Skoog Machine Operator with clean coronaries reported and severely reduced LVEF with concerns for Takotsubo's cardiomyopathy. She developed hypotension requiring vasopressors and is now transferred to the ICU for further care with hands and dial inspector consulted
for additional management/recommendations.
Impression:
Cardiogenic shock due to suspected Takotsubo's cardiomyopathy
S/p robotic bronchoscopy for right upper lobe mass with preliminary cytology positive for malignancy
Acute COPD exacerbation
Treated with steroids/antibiotics x 2 over the past 6 weeks
5.5 cm right upper lobe mass encompassing a right upper lobe airway
Right lung volume loss
Subcarinal adenopathy
Scattered bilateral nodules
Ring-enhancing right parietal lobe mass 3.3 cm with surrounding edema, mild left shift
10 pound weight loss
Left hand weakness
Abnormal EKG
P pulmonology
Conditions present prior to admission
Emphysema/COPD
[id number] history of smoking quit 2007
Family history of emphysema (mother)
Plan/recommendations
Patient underwent robotic bronchoscopy today with suspected right upper lobe lung cancer--> follow-up official pathology read
Post-procedure she developed chest pain and brought to the Skoog Machine Operator which showed 'clean coronaries,' with concern for Takotsubo's cardiomyopathy with reduced LVEF
Dr. Hirsch from cardiology has concerns for LVOT obstruction, hence we will start phenylephrine and try to avoid positive inotropic medications
Patient remains at high risk for further clinical deterioration, and she remains full code at this time
Continue with supplemental oxygen and keep goal SpO2 88-95% given her history of emphysema/COPD
Prior to today, she has been having significant respiratory symptoms, progressive x 2 months
Current testing worrisome for primary lung malignancy with brain metastases
Emphysema noted per CT chest
Lung mass with almost complete obstruction/encasement of right upper lobe airway
Continue with treatment for COPD exacerbation. Patient feels nebulized therapy helps with chest tightness
Continue with IV steroids + nebulized bronchodilators
Official echo performed on 08/21/2024 showed normal biventricular size with no significant valvular disease with a small pericardial effusion without evidence of hemodynamic compromise
Bedside spirometry performed on 08/22/2024 showed very severe COPD with post-bronchodilator FEV1 0.42 L / 21% predicted
Would consider oncology evaluation, and radiation/oncology evaluation as indicated
Dr. Mack had previously reviewed at length with patient and multiple family members
Reviewed that if this is metastatic lung cancer, initiation of treatment is important, especially given advances that have been made and treatment options
All questions answered
Reviewed briefly with primary service
Dr. Laboy reviewed with family and patient that she is in a critically ill state given her hypotension with evidence of cardiogenic shock. She remains full code for now
Continue with ICU level of care.
Critical care statement: A total of 40 minutes of critical care time was provided for this patient today. This includes management of unstable vital signs, evaluation of the patient at bedside, reviewing the patient's pertinent medical records
including radiographs, microbiology, laboratory evaluations, and discussion with primary team, consultants, pharmacy, nutrition, physical therapy, case management, charge nurse, critical care nursing, and respiratory therapy.
Subjective Dataa
Subjective Data
Date of Service:
Date of Service: August 23, 2024
Chief Complaint: Manager Clinical Informatics Follow Up and Pulmonary Follow Up
Subjective:
Patient was seen during rapid response. Patient noted to be short of breath and hypotensive with SBP in the 60s. Bolus of NS 0.9% started and phenylephrine also to be started. There is concern for LVOT obstruction, as per Dr. Hirsch from
cardiology. Patient is denies shortness of breath but she is clearly tachypneic. After phenylephrine was started her BP madi to 93/70 with heart rate 118, saturating 100% on 6 L/min nasal cannula. She denies chest pain, BRAGG, abdominal pain,
nausea, fevers or chills. Patient's , Medardo Earl, as well as son, Medardo Earl, and daughter, Blanca, were outside the room and I gave them all updates and answered all questions. Patient remains full code with full medical management.
Review of Systems
General: Other (Negative unless mentioned above)
Objective Data
Data Reviewed
Vital Signs / I&O / Oxygen:
Vital Signs
Temp Pulse Resp BP Pulse Ox
98 F 113 27 63/42 97
08/23/24 11:42 08/23/24 14:45 08/23/24 14:45 08/23/24 14:40 08/23/24 14:45
Intake and Output
08/22/24 08/23/24 08/24/24
06:59 06:59 06:59
Intake Total 240 / 240 960 / 960
Balance 240 / 240 960 / 960
SaO2 97
Nasal Cannula flow liters per 3
minute
Physical Exam
General: Respiratory Distress (positive), Chills (negative) and Sweats (negative)
HEENT: Normocephalic and Anicteric
Cardiovascular: S1-S2, Peripheral Edema (negative) and Other (Tachycardic)
Respiratory: Wheeze (negative), Crackles (Bibasilar), Rhonchi (Right upper lobe), Accessory Resp Muscle Use (Positive) and Stridor (negative)
GI: Soft, Non Distended, Non Tender and Normal Bowel Sounds
Neurology: Awake, Alert and Tremors (negative)
Skin: Warm, Dry and Jaundice (negative)
Labs/Micro/Reports
Lab Data
08/23/24 14:40
Laboratory Results
08/23/24
13:30
PT 15.6 H
INR 1.26
APTT > 200 H*
--- NOTE | 2024-08-23 15:50 | W.SUR.POST ---
Surgical Immediate Post Op
Note
Endotracheal Intubation Procedure Note
Date of procedure: 08/23/2024
Preprocedure diagnosis: Cardiac arrest
Postprocedure diagnosis: Same as above
RSI used: No
Cricoid pressure use: Yes
Preoxygenation: Yes with [id number] during cardiac arrest/CPR
Procedure details: Patient was in cardiac arrest. Patient was ventilated with [id number] and oxygenated with saturations 98%. Patient was successfully intubated using video laryngoscope with a size S3 blade. Endotracheal tube size 7 was seen
inserting the cords. Minor laryngeal trauma occurred during procedure given she had an anterior airway. 2 attempts were made before successful intubation. Intubation was confirmed with color capnometry, and equal breath sounds s/p intubation.
[2024-08-23 16:15] LABS: Hematocrit 25.8 % (37.0-47.0); Hemoglobin 8.3 g/dL (12.0-16.0); Mean Corp Hgb Conc. 32.2 g/dL (33.0-37.0); Mean Corpuscular Hgb 29.2 pg (27.0-31.0); Mean Corpuscular Volume 90.8 fL (81.0-99.0); Platelet Count 122 10^3/uL (130-400); Red Blood Cell Count 2.84 10^6/uL (4.20-5.40); White Blood Cell Count 7.8 10^3/uL (4.8-10.8)
--- NOTE | 2024-08-23 16:20 | ITS.CL.CATH ---
Assault Boat Coxswain - Catheterization
Cardiac Catheterization
Procedure Report:
LEFT HEART CATHETERIZATION
Date of Procedure: August 23, 2024
Referring: Dr. Kimmie Mack
PROCEDURES:
1. Left heart catheterization with coronary and single-plane left ventriculography
INDICATION: This is a 68-year-old female with a past medical history notable for COPD who presented with COPD exacerbation and abnormal imaging with a 5.5 cm right upper lobe mass. She underwent CT scan of the head that showed a ring-enhancing
right frontal lobe mass measuring 3.3 cm with surrounding edema. Earlier today she underwent bronchoscopy with preliminary pathology suggestive of malignancy. Following bronchoscopy she reported some mild chest discomfort and electrocardiogram was
performed with marked anterior and anterolateral ST segment elevation for which a STEMI alert was activated. She is now referred for immediate coronary angiography.
ACCESS: Right common femoral artery, 6 Albanian sheath
HEMODYNAMICS : (mmHg)
AO (s/d) : 117/70, 92
LV (s/d) : 115/16
LVEDP : 27
CORONARY FINDINGS
DOMINANCE: Right
LEFT MAIN: Short and unobstructed
LEFT ANTERIOR DESCENDING: The LAD arises from the left main with an eccentric 30% proximal and 30% mid. There is DELIO-3 flow to the apical LAD and diffuse luminal irregularities noted but no focal obstructive stenosis
CIRCUMFLEX: The circumflex is a medium caliber nondominant vessel. OM1 arises very proximally from the circumflex and runs in an distribution typical for a ramus. OM1 has only minor irregularities. OM 2 has only minor irregularities.
RIGHT CORONARY ARTERY: The right coronary artery is a moderate caliber dominant vessel with a 30% mid stenosis. The PDA is widely patent. The posterolateral branch is widely patent
VENTRICULOGRAPHY: Left ventriculography is performed in an STILL projection. The digital single-plane left ventricular ejection fraction is visually estimated at 30% with an angiographic appearance consistent with Takotsubo's type cardiomyopathy
RADIATION SUMMARY: Fluoro Time (min): 3.4, Dose (mGy): 149, DAP (Gy.cm2) : 10.6
Closure Device: None
CONCLUSIONS
1. Moderate but not critical coronary artery disease with DLEIO-3 flow to the distal aspect of the major epicardial coronary vessels.
2. Left ventriculography and history are most consistent with a apical ballooning/Takotsubo's type cardiomyopathy
RECOMMENDATIONS
1. Medical management for Takotsubo's type cardiomyopathy
Copy to: Dr. Kimmie Mack
[2024-08-23 16:26] LABS: ALT (SGPT) 32 U/L (0-35); AST (SGOT) 30 U/L (14-36); Alkaline Phosphatase 126 U/L (38-126); Blood Urea Nitrogen 20 mg/dl (7-17); Calcium 8.6 mg/dl (8.4-10.2); Carbon Dioxide 26 mmol/L (22-30); Chloride 103 mmol/L (98-107); Estimated Creatinine Clearance 55 ml/min; Glucose 163 mg/dl (70-99); Magnesium 2.4 mg/dl (1.6-2.3); Potassium 4.5 mmol/L (3.5-5.1); Sodium 143 mmol/L (135-145); Total Bilirubin 0.4 mg/dl (0.2-1.3); Total Protein 6.7 g/dl (6.3-8.2); eGFR > 60.00
--- NOTE | 2024-08-23 16:37 | W.PN.DEATH ---
Pronouncement of
-
Called to see patient to pronounce.
No spontaneous heart tones or respirations noted.
Patient not responsive to verbal stimuli.
Patient is pronounced .
Time of : 16:05
Date of : 08/23/24
Cause of : Cardiogenic shock from Takotsubo cardiomyopathy
Family Notified: Yes
--- NOTE | 2024-08-23 16:40 | W.DCSUMMARY ---
Discharge Summary
Discharge Data
Date of Admission: 08/19/24
Date of Discharge: 08/23/24
-
Pending Results: No
Hospital Course
Differential diagnosis:
Cardiogenic shock
Takotsubo cardiomyopathy
Right upper lobe lung mass with solitary brain lesion/metastasis
Acute on chronic obstructive pulmonary disease exacerbation
Acute hypoxic respiratory insufficiency
Severe generalized anxiety
Benign essential hypertension
Sinus tachycardia
Constipation
Consults: Pulmonology, oncology, radiation oncology, neurosurgery, cardiology, poured wall foreman
08/23/2024 Procedures:
Bronchoscopy with biopsy
Cardiac catheterization
1. Moderate but not critical coronary artery disease with DELIO-3 flow to the distal aspect of the major epicardial coronary vessels.
2. Left ventriculography and history are most consistent with a apical ballooning/Takotsubo's type cardiomyopathy
Hospital course:
68-year-old female with a past medical history of former smoker, COPD, and severe generalized anxiety was admitted for acute on chronic COPD exacerbation. CT of the chest shows a new right upper lobe lung mass. Brain MRI shows a new right parietal
lobe lesion concerning for cerebral metastases. Patient was seen in conjunction with pulmonology. She was treated with IV steroids and bronchodilators for acute on chronic COPD exacerbation.
Patient was seen in conjunction with oncology, who recommended tissue biopsy for further treatment recommendations. Patient was seen in conjunction with neurosurgery, she is not a candidate for craniotomy secondary to her severe COPD. Patient was
seen in conjunction with radiation oncology, who planned for outpatient radiation treatment to the brain.
Patient had hypertension upon admission. She was started on lisinopril 20 mg daily. Her blood pressure improved.
She underwent bronchoscopy with biopsy on 08/23/2024. Postprocedure, she developed severe hypotension and her EKG showed ST elevation. She was urgently taken to the Key Filer. Cardiac catheterization showed moderate but noncritical CAD, and apical
ballooning consistent with Takotsubo's cardiomyopathy. She received adequate fluid resuscitation, and her blood pressure improved.
Postcatheterization, her hypotension returned and worsened. She was started on phenylephrine. Despite this, her blood pressure continued to deteriorate, and she went into PEA arrest. She received multiple rounds of epinephrine, CPR, and was
intubated. Despite maximal efforts, ROSC was unable to be obtained. She subsequently at 16:05. Family was at bedside, condolences were offered.
Discharge Plan
-
Patient Disposition:
Date/Time
Date/Time: 08/23/24 16:05
Discharge Date and Time
Discharge Date/Time: 08/23/24 16:05
Print Language: GHANAIAN
--- NOTE | 2024-08-23 16:44 | PTCARENOTE ---
Met pt at rapid response in IVU where pt was hypotensive s/p bronch and cath, drowsy but denied cp/sob/nausea. SBP 50-60s via r femoral arterial line, pt was pale with weakly palpable peripheral pulses to RLE. bp did not improve with ivf alone and
Dr Hirsch was at bedside and requested graeme gtt initiated. Graeme gtt initiated and then pt transported to ICU for management. Upon arrival to icu, pt remained hypotensive, graeme gtt titrated to 150mcg/min with improvement to high 80s/low 90s. pt was
drowsy, but continued to deny sob/cp/nausea. only c/o discomfort to back of r knee. lungs with wheezing b/l, tachypneic. pt pale, r leg mottled, all extremities cool, r wrist iv site with ?infiltrate iv switched to l ac site after unsuccessful
attempt at additional site. Xray came in to room to do portable as requested during rapid response and after pt had xray, pt noted to be unresponsive with pupils dilated to 5 b/l and PEA arrest. Compressions begun immediately,code called,
otherwise please refer to code sheet.
== END 2024-08-23 16:05 | disposition expired | DRG 166 ==
LOC: ICU 20:16
PROVIDERS: Registered Nurse; ADMITTING PHYSICIAN Hospitalist; ATTENDING PHYSICIAN Family Medicine; CONSULT PHYSICIAN Internal Medicine Hematology & Oncology; CONSULT PHYSICIAN Neurological Surgery; EMERGENCY PHYSICIAN Emergency Medicine; OTHER PHYSICIAN Internal Medicine Critical Care Medicine; OTHER PHYSICIAN Internal Medicine Interventional Cardiology
PROC: B2151ZZ Fluoroscopy of Left Heart using Low Osmolar Contrast (ICD-10-PCS; 2024-08-23)
PROC: 0B9C8ZX Drainage of Right Upper Lung Lobe, Via Natural or Artificial Opening Endoscopic, Diagnostic (ICD-10-PCS; 2024-08-23)
PROC: 0BBC8ZX Excision of Right Upper Lung Lobe, Via Natural or Artificial Opening Endoscopic, Diagnostic (ICD-10-PCS; 2024-08-23)
PROC: 4A023N7 Measurement of Cardiac Sampling and Pressure, Left Heart, Percutaneous Approach (ICD-10-PCS; 2024-08-23)
PROC: 0BB48ZX Excision of Right Upper Lobe Bronchus, Via Natural or Artificial Opening Endoscopic, Diagnostic (ICD-10-PCS; 2024-08-23)
PROC: B2111ZZ Fluoroscopy of Multiple Coronary Arteries using Low Osmolar Contrast (ICD-10-PCS; 2024-08-23)
DX: C34.91 Malignant neoplasm of unspecified part of right bronchus or lung (principal); G93.6 Cerebral edema; I21.3 ST elevation (STEMI) myocardial infarction of unspecified site; C79.31 Secondary malignant neoplasm of brain; J44.1 Chronic obstructive pulmonary disease with (acute) exacerbation; I51.81 Takotsubo syndrome; I31.39 Other pericardial effusion (noninflammatory); J98.19 Other pulmonary collapse; F41.1 Generalized anxiety disorder; Z87.891 Personal history of nicotine dependence; I46.9 Cardiac arrest, cause unspecified; R57.0 Cardiogenic shock; I25.10 Atherosclerotic heart disease of native coronary artery without angina pectoris; I10 Essential (primary) hypertension; F32.A Depression, unspecified; I34.81 Nonrheumatic mitral (valve) annulus calcification; J43.9 Emphysema, unspecified
CPT/HCPCS: 88173; 88305; 93308; 70553; 71045; 71046; 71275; 76000; 80048; 80053; 82805; 82962; 83735; 83880; 84145; 84484; 85025; 85027; 85379; 85610; 85730; 86803; 86850; 86900; 86901; 87502; 87811; 88112; 88333; 93005; 93306; 93458; 94060; 94640; 96374; 99291; A9575; C1887; C1894; Q9967